=== PATIENT | male | born 1950 | race Two or more races ===

== ENCOUNTER 2019-08-08 23:10 | Inpatient (IN) | payer MEDICAID ==
[~2019-08-08] VITALS: Ht 172.7 cm; Wt 105.2 kg
[2019-08-08 23:35] VITALS: BP 112/68
--- NOTE | 2019-08-08 23:35 | NUR ---
ED Nurse Note: Pt brought into ED from [facility] by [facility] for c/o flu like symptoms. Pt states he has had a cough, congestion, chills and fever the past four days. No fever noted in the ED, temp of 97.4F. Pt is aaox4, no cardiac or respiratory distress noted. Pt is able to ambulate with cane. Pt placed on surveillance system monitor and into hospital gown. Will continue to monitor.
--- NOTE | 2019-08-08 23:45 | NUR ---
ED Nurse Note: Inguinal hernia noted.
--- NOTE | 2019-08-09 | NUR ---
ED Nurse Note: OMERO aware of pt HR jamar in the 50's.
--- NOTE | 2019-08-09 00:24 | Emergency Room Report ---
History of Present Illness General Chief Complaint: Flu Like Symptoms Source: Patient, EMS Present Illness HPI 69-year-old gentleman with a history of chronic kidney disease, diabetes, depression, sleep apnea, scrotal hernia who presents to emergency room with difficulty breathing, and not feeling well for last 2 days. Patient reports symptoms worsened overnight today. Patient did receive influenza vaccination at [email or web address] where he resides. Patient does have a history of congestive heart failure and does feel like he is having increased swelling in his lower extremities as well as difficulty breathing. Patient has been compliant with all of his medications. Patient denies any nausea vomiting diarrhea constipation. Patient has no recent travel. Allergies: Coded Allergies: LISINOPRIL (Verified Allergy, Unknown, 08/08/19) METOPROLOL (Verified Allergy, Unknown, 08/08/19) OXYCODONE (Verified Allergy, Unknown, 08/08/19) RANITIDINE (Verified Allergy, Unknown, 08/08/19) Nursing Documentation-[facility] Hx Diabetes: Yes History Of Psychiatric Problem: Yes - depression Review of Systems Constitutional: Denies: chills, fever Respiratory: Reports: cough, shortness of breath Cardiovascular: Denies: chest pain, palpitations Gastrointestinal: Denies: diarrhea, vomiting Genitourinary: Denies: hematuria, pain Musculoskeletal: Denies: joint swelling Skin: Denies: rash, lesions Neurological: Denies: headache, dizziness Physical Exam Vital Signs Date Time Temp Pulse Resp B/P (MAP) Pulse Ox O2 Delivery O2 Flow Rate FiO2 08/08/19 23:19 97.9 55 23 112/68 (83) 95 Nasal Cannula 3.0 Sp02 EP Interpretation: reviewed General Appearance: well appearing, non-toxic, moderate distress Head: normocephalic, atraumatic Eyes: bilateral eye normal inspection ENT: hearing grossly normal, EOM grossly intact, moist mucus membranes Neck: supple Respiratory: lungs clear, normal breath sounds, no retraction, no accessory muscle use, respiratory distress - moderate, decreased breath sounds, crackles, rhonchi, speaking full sentences Cardiovascular #1: regular rate, rhythm, no edema, no gallop, normal capillary refill Cardiovascular #2: 2+ radial (R), 2+ radial (L) Gastrointestinal: soft, no mass, no organomegaly, non-distended Rectal: deferred Musculoskeletal: moves extm spontaneously, swelling - mild bialteral LE Neurologic: grossly normal Psychiatric: mood/affect normal Skin: warm/dry, normal turgor Medical Decision Making Diagnostic Impression: Primary Impression: CHF (congestive heart failure) Additional Impression: SOB (shortness of breath) ER Course 69-year-old male presents with flulike symptoms, shortness of breath found to have rhonchi bilaterally, mild lower extremity edema, and respiratory distress. Ddx considered but are not limited to URI, pneumonia, PE, bronchitis, viral syndrome, MS ED course We will perform EKG, lab testing and chest x-ray to evaluate, will test for influenza. Patient x-ray noted increased vascular markings. Likely consistent with congestive heart failure exacerbation secondary to viral illness. Patient started on Lasix. Patient also given steroids and duo nebs. Patient will need admission to telemetry Laboratory Tests Test 08/09/19 00:20 08/09/19 01:15 White Blood Count 5.5 K/UL (4.8-10.8) Red Blood Count 3.70 M/UL (4.70-6.10) L Hemoglobin 11.7 G/DL (14.2-18.0) L Hematocrit 36.4 % (42.0-52.0) L Mean Corpuscular Volume 97 FL (80-99) Mean Corpuscular Hemoglobin 31.6 PG (27.0-31.0) H Mean Corpuscular Hemoglobin Concent 32.5 G/DL (32.0-36.0) Red Cell Distribution Width 13.6 % (11.6-14.8) Platelet Count 158 K/UL (150-450) Mean Platelet Volume 6.1 FL (6.5-10.1) L Neutrophils (%) (Auto) % (45.0-75.0) Lymphocytes (%) (Auto) % (20.0-45.0) Monocytes (%) (Auto) % (1.0-10.0) Eosinophils (%) (Auto) % (0.0-3.0) Basophils (%) (Auto) % (0.0-2.0) Sodium Level 140 MMOL/L (136-145) Potassium Level 4.4 MMOL/L (3.5-5.1) Chloride Level 102 MMOL/L (98-107) Carbon Dioxide Level 10 MMOL/L (21-32) L Anion Gap 8 mmol/L (5-15) Blood Urea Nitrogen 44 mg/dL (7-18) H Creatinine 2.3 MG/DL (0.55-1.30) H Estimate Glomerular Filtration Rate 28.3 mL/min (>60) Glucose Level 207 MG/DL (74-106) H Lactic Acid Level 1.20 mmol/L (0.4-2.0) Calcium Level 8.3 MG/DL (8.5-10.1) L Total Bilirubin 0.8 MG/DL (0.2-1.0) Aspartate Amino Transferase (AST) 43 U/L (15-37) H Alanine Aminotransferase (ALT) 34 U/L (12-78) Alkaline Phosphatase 112 U/L (46-116) Total Creatine Kinase 39 U/L (26-140) Creatine Kinase MB 1.0 NG/ML (0.0-3.6) Creatine Kinase MB Relative Index 2.5 Troponin I 0.000 ng/mL (0.000-0.056) Pro-B-Type Natriuretic Peptide Pending Total Protein 8.0 G/DL (6.4-8.2) Albumin 3.5 G/DL (3.4-5.0) Globulin 4.5 g/dL Albumin/Globulin Ratio 0.8 (1.0-2.7) L Urine Color Pale yellow Urine Appearance Clear Urine pH 5 (4.5-8.0) Urine Specific [place] 1.010 (1.005-1.035) Urine Protein Negative (NEGATIVE) Urine Glucose (UA) Negative (NEGATIVE) Urine Ketones Negative (NEGATIVE) Urine Blood Negative (NEGATIVE) Urine Nitrite Negative (NEGATIVE) Urine Bilirubin Negative (NEGATIVE) Urine Urobilinogen Normal MG/DL (0.0-1.0) Urine Leukocyte Esterase Negative (NEGATIVE) Microbiology Date/Time Source Procedure Growth Status 08/09/19 00:20 Nasal Nares - Final Complete 08/09/19 00:20 Nasal Nares - Final Complete Lab Results Impression CBC noted to have mild anemia. CMP noted elevated BUN and creatinine, negative troponin, pending proBNP as it is a send out at this time. And negative urinalysis. EKG Diagnostic Results EKG Time: 00:23 EP Interpretation: Rate of 51 Rate: bradycardiac Rhythm: NSR ST Segments: no acute changes Other Impression Diffuse T wave flattening , poor baseline, prolonged QT of 516, Rhythm Strip Diag. Results Rhythm Strip Time: 06:03 EP Interpretation: yes Rate: 49 Rhythm: NSR Reevaluation Time: 06:04 Last Vital Signs Date Time Temp Pulse Resp B/P (MAP) Pulse Ox O2 Delivery O2 Flow Rate FiO2 08/09/19 03:20 54 18 99 Nasal Cannula 2.0 28 52 18 96 08/09/19 02:30 97.9 114/52 Reevaluation Impression Patient needed to be admitted to telemetry. 6 pages were made out to admitting team with no response starting at 4 AM until 5:58 AM. Yandel Kaur returned call and excepted patient to telemetry unit for further treatment. Disposition: ADMITTED INPATIENT Condition: Serious Dejuan Ferguson M.D. Aug 09, 2019 00:23
[2019-08-09 01:29] LABS: APPEARANCE,URINE CLEAR; BILIRUBIN, URINE NEGATIVE (NEGATIVE); COLOR,URINE PALE YELLOW; GLUCOSE, URINE (UA) NEGATIVE (NEGATIVE); KETONES,URINE NEGATIVE (NEGATIVE); LEUKOCYTE ESTERASE ,URINE NEGATIVE (NEGATIVE); NITRITE,URINE NEGATIVE (NEGATIVE); PH,URINE 5 (4.5-8.0); PROTEIN,URINE NEGATIVE (NEGATIVE); UROBILINOGEN,URINE NORMAL MG/DL (0.0-1.0)
[2019-08-09 01:42] LABS: HEMATOCRIT 36.4 % (42.0-52.0); HEMOGLOBIN 11.7 G/DL (14.2-18.0); MEAN CORPUSCULAR VOLUME 97 FL (80-99); WHITE BLOOD COUNT 5.5 K/UL (4.8-10.8)
[2019-08-09 01:43] LABS: PLATELET COUNT 158 K/UL (150-450); RED CELL DISTRIBUTION WIDTH 13.6 % (11.6-14.8)
[2019-08-09 02:09] LABS: ANION GAP 8 mmol/L (5-15); BLOOD UREA NITROGEN 44 mg/dL (7-18); CARBON DIOXIDE 10 MMOL/L (21-32); CHLORIDE 102 MMOL/L (98-107); CREATININE 2.3 MG/DL (0.55-1.30); POTASSIUM 4.4 MMOL/L (3.5-5.1); SODIUM 140 MMOL/L (136-145)
[2019-08-09 02:10] LABS: ALANINE AMINOTRANSFERASE 34 U/L (12-78); ALBUMIN 3.5 G/DL (3.4-5.0); ASPARTATE AMINO TRANSFERASE 43 U/L (15-37); BILIRUBIN,TOTAL 0.8 MG/DL (0.2-1.0); CALCIUM 8.3 MG/DL (8.5-10.1); CREATINE KINASE 39 U/L (26-140)
[2019-08-09 02:11] LABS: ALBUMIN/GLOBULIN RATIO 0.8 (1.0-2.7); ALKALINE PHOSPHATASE 112 U/L (46-116)
[2019-08-09 02:30] VITALS: BP 114/52
--- NOTE | 2019-08-09 02:30 | NUR ---
ED Nurse Note: Pt is sleeping comfortably in bed at this time, no acute distress noted. Vital signs are stable as charted. Will continue to monitor.
[2019-08-09] MEDS ORDERED: Solu-MEDROL 125mg Inj IVP ONE (03:15)
[2019-08-09] MEDS ORDERED: Albuterol/Ipratropium 3ml neb HHN ONE (03:15)
--- NOTE | 2019-08-09 05:30 | NUR ---
ED Nurse Note: Pt sleeping in bed at this time, no acute distress noted. Awaiting on bed. Will continue to monitor.
[2019-08-09 06:30] VITALS: BP 109/59
--- NOTE | 2019-08-09 07:15 | NUR ---
HAND-OFF: Report given to PAUL Barkley and endorsed care.
--- NOTE | 2019-08-09 07:20 | NUR ---
ED Nurse Note: Received patient in bed, patient resting comfortably in bed, on a imaging technician.
[2019-08-09] MEDS ORDERED: FEROSUL325 M1 PO (07:30)
[2019-08-09] MEDS ORDERED: ACETAZOLAMIDE500 MG ORAL (07:30)
[2019-08-09] MEDS ORDERED: SPIRONOLACTONE100 MG ORAL (07:30)
[2019-08-09] MEDS ORDERED: ATORVASTATIN CA40 MG ORAL (07:30)
[2019-08-09] MEDS ORDERED: MIRTAZAPINE7.5 MG ORAL (07:30)
[2019-08-09] MEDS ORDERED: BUMETANIDE2 MG ORAL (07:30)
[2019-08-09] MEDS ORDERED: PANTOPRAZOLE SO40 MG ORAL (07:30)
[2019-08-09] MEDS ORDERED: LEVOTHYROXINE75 MCG ORAL (07:30)
[2019-08-09] MEDS ORDERED: CARVEDILOL6.25 MG ORAL (07:30)
[2019-08-09] MEDS ORDERED: AMIODARONE HCL400 M1 ORAL (07:30)
[2019-08-09 07:36] VITALS: BP 110/62
--- NOTE | 2019-08-09 08:40 | NUR ---
ED Nurse Note: patient safely transferred to 2W with all of his belongings, endorsed all plan of care to Lynda MILLER.
--- NOTE | 2019-08-09 09:45 | NUR ---
NURSE NOTES: Pt is a new admission from ED,brought to SDU per Zoila,awake alert in no acute resp distress, received by Lynda Mayers RN.Pt denies any c/o chest pain or discomfort,S- jamar on the monitor.
--- NOTE | 2019-08-09 10:06 | History and Physical ---
History of Present Illness General Date patient seen: Aug 10, 2019 Reason for Hospitalization: Flu Like Symptoms Present Illness HPI 69-year-old man with a history of systolic chf, ef 30%, HTN, CAD s/p bypass graft, sever tricuspid regurgitation, chronic kidney disease, diabetes, depression, sleep apnea, scrotal hernia who presented to emergency room with difficulty breathing, and not feeling well for last 2 days. Patient reports symptoms worsened overnight. Patient did receive influenza vaccination at [facility] where he resides. Patient does also feels like he is having increased swelling in his lower extremities as well as difficulty breathing. Patient has been compliant with all of his medications. Patient denies any nausea vomiting diarrhea constipation. Patient has no recent travel. He is usually followed by [facility]. Recently hospitalized there for 4 days and release last week. Says they did a paracentesis on him. past medical history: as above past surgical history: cabg family history: denies any history of sudden cardiac Social history: [facility] resident, denies smoking, etoh or illicit drug use Allergies: Coded Allergies: LISINOPRIL (Verified Allergy, Unknown, 08/08/19) METOPROLOL (Verified Allergy, Unknown, 08/08/19) OXYCODONE (Verified Allergy, Unknown, 08/08/19) RANITIDINE (Verified Allergy, Unknown, 08/08/19) Medication History Scheduled Acetazolamide* (Acetazolamide*), 500 MG ORAL TWICE A DAY, (Reported) Amiodarone Hcl* (Amiodarone Hcl*), 200 MG ORAL EVERY 12 HOURS, (Reported) Atorvastatin Calcium* (Atorvastatin Calcium*), 40 MG ORAL BEDTIME, (Reported) Bumetanide* (Bumetanide*), 4 MG ORAL DAILY, (Reported) Carvedilol* (Carvedilol*), 6.25 MG ORAL EVERY 12 HOURS, (Reported) Levothyroxine Sodium* (Levothyroxine Sodium*), 0.075 MCG ORAL DAILY, (Reported) Mirtazapine* (Mirtazapine*), 30 MG ORAL BEDTIME, (Reported) Pantoprazole* (Pantoprazole*), 40 MG ORAL DAILY, (Reported) Spironolactone* (Spironolactone*), 100 MG ORAL DAILY, (Reported) Miscellaneous Medications Ferrous Sulfate (Ferosul), 325 MG PO, (Reported) Patient History Healthcare decision maker Resuscitation status Advanced Directive on File Review of Systems Constitutional: Denies: no symptoms, see HPI, chills, sweats, fever, malaise, weakness, other Eye: Denies: no symptoms, see HPI, eye pain, blurred vision, tearing, double vision, nose pain, nose congestion, acuity changes, discharge, other Respiratory: Reports: shortness of breath Cardiovascular: Reports: edema Gastrointestinal: Denies: no symptoms, see HPI, abdominal pain, constipation, diarrhea, nausea, vomiting, melena, hematemesis, other Genitourinary: Denies: no symptoms, see HPI, discharge, dysuria, frequency, hematuria, pain, retention, incontinence, urgency, vag bleed/dc, other Musculoskeletal: Denies: no symptoms, see HPI, back pain, gout, joint pain, joint swelling, muscle pain, muscle stiffness, other Skin: Denies: no symptoms, see HPI, rash, change in color, change in hair/nails , dryness, lesions, other Psychiatric: Denies: no symptoms, see HPI, prior hx, anxiety, depressed feelings, emotional problems, SI, HI, hallucinations, other Neurological: Denies: no symptoms, see HPI, headache, numbness, paresthesia, seizure, tingling, tremors, focal weakness, syncope, dizziness, other Hematologic/Lymphatic: Denies: no symptoms, see HPI, anemia, blood clots, easy bleeding, easy bruising, swollen glands, diathesis, other Physical Exam General Appearance: no apparent distress, alert Lines, tubes and drains: peripheral HEENT: normocephalic, atraumatic Neck: non-tender, supple Respiratory/Chest: lungs clear, normal breath sounds, no respiratory distress Cardiovascular/Chest: normal rate, regular rhythm, no gallop/murmur, JVD Abdomen: normal bowel sounds, non tender, soft, distended Extremities: moderate edema, other - chronic skin darkening and changes Skin Exam: warm/dry 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 Last 24 Hour Vital Signs Date Time Temp Pulse Resp B/P (MAP) Pulse Ox O2 Delivery O2 Flow Rate FiO2 08/09/19 08:40 97.9 52 25 110/62 93 Nasal Cannula 2.0 28 08/09/19 07:36 97.9 52 25 110/62 93 Nasal Cannula 2.0 08/09/19 06:30 97.9 50 21 109/59 96 Nasal Cannula 2.0 28 08/09/19 03:20 54 18 99 Nasal Cannula 2.0 28 52 18 96 08/09/19 02:30 97.9 53 19 114/52 95 Nasal Cannula 3.0 08/08/19 23:35 55 23 Nasal Cannula 3.0 08/08/19 23:35 97.9 55 23 112/68 95 Nasal Cannula 3.0 08/08/19 23:19 97.9 55 23 112/68 (83) 95 Nasal Cannula 3.0 Intake and Output 08/08/19 08/09/19 19:00 07:00 Intake Total 0 ml Balance 0 ml Intake Oral 0 ml Laboratory Tests Test 08/09/19 00:20 08/09/19 01:15 White Blood Count 5.5 K/UL (4.8-10.8) Red Blood Count 3.70 M/UL (4.70-6.10) L Hemoglobin 11.7 G/DL (14.2-18.0) L Hematocrit 36.4 % (42.0-52.0) L Mean Corpuscular Volume 97 FL (80-99) Mean Corpuscular Hemoglobin 31.6 PG (27.0-31.0) H Mean Corpuscular Hemoglobin Concent 32.5 G/DL (32.0-36.0) Red Cell Distribution Width 13.6 % (11.6-14.8) Platelet Count 158 K/UL (150-450) Mean Platelet Volume 6.1 FL (6.5-10.1) L Neutrophils (%) (Auto) % (45.0-75.0) Lymphocytes (%) (Auto) % (20.0-45.0) Monocytes (%) (Auto) % (1.0-10.0) Eosinophils (%) (Auto) % (0.0-3.0) Basophils (%) (Auto) % (0.0-2.0) Sodium Level 140 MMOL/L (136-145) Potassium Level 4.4 MMOL/L (3.5-5.1) Chloride Level 102 MMOL/L (98-107) Carbon Dioxide Level 10 MMOL/L (21-32) L Anion Gap 8 mmol/L (5-15) Blood Urea Nitrogen 44 mg/dL (7-18) H Creatinine 2.3 MG/DL (0.55-1.30) H Estimat Glomerular Filtration Rate 28.3 mL/min (>60) Glucose Level 207 MG/DL (74-106) H Lactic Acid Level 1.20 mmol/L (0.4-2.0) Calcium Level 8.3 MG/DL (8.5-10.1) L Total Bilirubin 0.8 MG/DL (0.2-1.0) Aspartate Amino Transf (AST/SGOT) 43 U/L (15-37) H Alanine Aminotransferase (ALT/SGPT) 34 U/L (12-78) Alkaline Phosphatase 112 U/L (46-116) Total Creatine Kinase 39 U/L (26-140) Creatine Kinase MB 1.0 NG/ML (0.0-3.6) Creatine Kinase MB Relative Index 2.5 Troponin I 0.000 ng/mL (0.000-0.056) Pro-B-Type Natriuretic Peptide Pending Total Protein 8.0 G/DL (6.4-8.2) Albumin 3.5 G/DL (3.4-5.0) Globulin 4.5 g/dL Albumin/Globulin Ratio 0.8 (1.0-2.7) L Urine Color Pale yellow Urine Appearance Clear Urine pH 5 (4.5-8.0) Urine Specific [place] 1.010 (1.005-1.035) Urine Protein Negative (NEGATIVE) Urine Glucose (UA) Negative (NEGATIVE) Urine Ketones Negative (NEGATIVE) Urine Blood Negative (NEGATIVE) Urine Nitrite Negative (NEGATIVE) Urine Bilirubin Negative (NEGATIVE) Urine Urobilinogen Normal MG/DL (0.0-1.0) Urine Leukocyte Esterase Negative (NEGATIVE) Microbiology Date/Time Source Procedure Growth Status 08/09/19 00:20 Nasal Nares - Final Complete 08/09/19 00:20 Nasal Nares - Final Complete 08/09/19 07:00 Rectum Received Height (Feet): 5 Height (Inches): 10.00 Weight (Pounds): 230 Assessment/Plan Status: stable Assessment/Plan: 59 year old male with systolic chf, ef 30%, HTN, CAD s/p bypass graft, sever tricuspid regurgitation, chronic kidney disease, diabetes, hypothyroidism, depression, sleep apnea, scrotal hernia presented with sob and edema #Exacerbation of systolic CHF ejection fraction of 30%. #Coronary artery disease with history of coronary artery bypass #HTN #History of severe TR graft. repeat 2D Echocardiogram Cardiology consult Lasix 40 mg IV b.i.d. Coreg hold off on lisinopril and Aldactone in view of renal failure. Hold Bumex as well since on IV lasix continue amiodarone try to get the records from [facility] for further management. #EMMANUELLE vs EMMANUELLE on CKD monitor renal function. Avoid nephrotoxic meds Nephrology consult #COPD #NILSA Hold Diamox for now Duoneb o2 as needed to keep o2 sat >90% ?cpa, resume if already using at home Pulmonary consult #Obesity funeral planning counselor regarding weight loss and life style modification #Severe metabolic acidosis on admission, ? error, resolved I spent 72 minutes on this encounter. >50% spent on counselling and care coordination time of note may not reflect time of encounter Haris Turner M.D. Aug 09, 2019 10:06
--- NOTE | 2019-08-09 10:30 | NUR ---
NURSE NOTES: Dr Singh and Dr Turner at bedside,discussed with pt re plans of care.Pt very alert and knowledgeable re his health problem and surgeries.
--- NOTE | 2019-08-09 13:02 | Diagnostic Imaging Report ---
Indication: Shortness of breath Technique: One view of the chest Comparison: none Findings: The heart is enlarged. There is evidence of prior CABG. The lungs and pleural spaces are clear. Impression: No acute process
--- NOTE | 2019-08-09 14:30 | NUR ---
NURSE NOTES: Pt transferred to Telemetry per bed rm 216 awake alert oriented in no distress accompanied by Lynda Mayers RN and JAMEL Mcgee.
--- NOTE | 2019-08-09 15:00 | NUR ---
NURSE NOTES: recvd pt. Pt is AOX4 on NC @2L with no sign of sob or resp distress. belongings reviewed. court recording monitor showing pt is SR. VSS. IV site is c/d/i. Skin is intact, only dryness on both lower legs. Bed in lowest position, call light within reach, will continue with plan of care
[2019-08-09 16:00] VITALS: BP 119/66
--- NOTE | 2019-08-09 17:59 | NUR ---
NURSE NOTES: Called Dr Monteiro, missing orders for code status, DVT and duo nebs if continue?
[2019-08-09] MEDS: acetaZOLAMIDE 500mg Sequel ORAL SCH (18:11)
--- NOTE | 2019-08-09 19:38 | NUR ---
NURSE NOTES: Received patient from PAUL Hammond. Pt is AOX4 on NC @2L with no sign of sob or resp distress. belongings reviewed. cardiac monitor showing pt is SR. IV site is c/d/i. Skin is intact, only dryness on both lower legs. Bed in lowest position, call light within reach, will continue with plan of care
[2019-08-09 20:00] VITALS: BP 115/65
[2019-08-09] MEDS ORDERED: Amiodarone 200mg tab ORAL SCH (21:00)
[2019-08-09] MEDS ORDERED: Carvedilol 6.25mg Tab ORAL SCH (21:00)
--- NOTE | 2019-08-09 21:29 | Cardiac Electrophysiology PN ---
Subjective Subjective [id number] Objective Last 24 Hour Vital Signs Date Time Temp Pulse Resp B/P (MAP) Pulse Ox O2 Delivery O2 Flow Rate FiO2 08/09/19 20:00 97.7 60 18 115/65 (82) 93 08/09/19 18:26 Nasal Cannula 2.0 08/09/19 16:00 97.5 56 20 119/66 (83) 95 08/09/19 16:00 62 08/09/19 12:00 97.6 58 18 95 08/09/19 11:41 67 08/09/19 10:50 Room Air 08/09/19 09:26 54 08/09/19 08:40 97.9 52 25 110/62 93 Nasal Cannula 2.0 28 08/09/19 08:30 97.5 54 20 95 08/09/19 07:36 97.9 52 25 110/62 93 Nasal Cannula 2.0 08/09/19 06:30 97.9 50 21 109/59 96 Nasal Cannula 2.0 28 08/09/19 03:20 54 18 99 Nasal Cannula 2.0 28 52 18 96 08/09/19 02:30 97.9 53 19 114/52 95 Nasal Cannula 3.0 08/08/19 23:35 55 23 Nasal Cannula 3.0 08/08/19 23:35 97.9 55 23 112/68 95 Nasal Cannula 3.0 08/08/19 23:19 97.9 55 23 112/68 (83) 95 Nasal Cannula 3.0 Intake and Output 08/08/19 08/09/19 19:00 07:00 Intake Total 0 ml Balance 0 ml Intake Oral 0 ml Laboratory Tests Test 08/09/19 00:20 08/09/19 01:15 White Blood Count 5.5 K/UL (4.8-10.8) Red Blood Count 3.70 M/UL (4.70-6.10) L Hemoglobin 11.7 G/DL (14.2-18.0) L Hematocrit 36.4 % (42.0-52.0) L Mean Corpuscular Volume 97 FL (80-99) Mean Corpuscular Hemoglobin 31.6 PG (27.0-31.0) H Mean Corpuscular Hemoglobin Concent 32.5 G/DL (32.0-36.0) Red Cell Distribution Width 13.6 % (11.6-14.8) Platelet Count 158 K/UL (150-450) Mean Platelet Volume 6.1 FL (6.5-10.1) L Neutrophils (%) (Auto) % (45.0-75.0) Lymphocytes (%) (Auto) % (20.0-45.0) Monocytes (%) (Auto) % (1.0-10.0) Eosinophils (%) (Auto) % (0.0-3.0) Basophils (%) (Auto) % (0.0-2.0) Sodium Level 140 MMOL/L (136-145) Potassium Level 4.4 MMOL/L (3.5-5.1) Chloride Level 102 MMOL/L (98-107) Carbon Dioxide Level 10 MMOL/L (21-32) L Anion Gap 8 mmol/L (5-15) Blood Urea Nitrogen 44 mg/dL (7-18) H Creatinine 2.3 MG/DL (0.55-1.30) H Estimat Glomerular Filtration Rate 28.3 mL/min (>60) Glucose Level 207 MG/DL (74-106) H Lactic Acid Level 1.20 mmol/L (0.4-2.0) Calcium Level 8.3 MG/DL (8.5-10.1) L Total Bilirubin 0.8 MG/DL (0.2-1.0) Aspartate Amino Transf (AST/SGOT) 43 U/L (15-37) H Alanine Aminotransferase (ALT/SGPT) 34 U/L (12-78) Alkaline Phosphatase 112 U/L (46-116) Total Creatine Kinase 39 U/L (26-140) Creatine Kinase MB 1.0 NG/ML (0.0-3.6) Creatine Kinase MB Relative Index 2.5 Troponin I 0.000 ng/mL (0.000-0.056) Pro-B-Type Natriuretic Peptide 435 pg/mL (0-125) H Total Protein 8.0 G/DL (6.4-8.2) Albumin 3.5 G/DL (3.4-5.0) Globulin 4.5 g/dL Albumin/Globulin Ratio 0.8 (1.0-2.7) L Urine Color Pale yellow Urine Appearance Clear Urine pH 5 (4.5-8.0) Urine Specific [place] 1.010 (1.005-1.035) Urine Protein Negative (NEGATIVE) Urine Glucose (UA) Negative (NEGATIVE) Urine Ketones Negative (NEGATIVE) Urine Blood Negative (NEGATIVE) Urine Nitrite Negative (NEGATIVE) Urine Bilirubin Negative (NEGATIVE) Urine Urobilinogen Normal MG/DL (0.0-1.0) Urine Leukocyte Esterase Negative (NEGATIVE) Microbiology Date/Time Source Procedure Growth Status 08/09/19 00:20 Nasal Nares - Final Complete 08/09/19 00:20 Nasal Nares - Final Complete 08/09/19 07:00 Rectum Received Paramjit Singh MD Aug 09, 2019 21:29
[2019-08-09] MEDS: Atorvastatin 80mg tab ORAL SCH (21:50)
--- NOTE | 2019-08-09 22:30 | Consultation ---
DATE OF CONSULTATION: 08/09/2019 CARDIOLOGY CONSULTATION CONSULTING PHYSICIAN: Paramjit Singh M.D. REFERRING PHYSICIAN: Antonio Monteiro M.D. REASON FOR CONSULTATION: Management of hypertension and congestive heart failure in a patient with history of coronary artery bypass graft and cardiomyopathy. HISTORY OF PRESENT ILLNESS: The patient is a 69-year-old gentleman with history of hypertension, diabetes, and congestive heart failure with history of coronary artery bypass graft, and severe ischemic cardiomyopathy, ejection fraction of only 30%. The patient also has severe tricuspid regurgitation. He is usually followed by [facility]. The patient came to the emergency room for difficulty breathing and not feeling well, increased leg edema for the last two days. The patient did receive influenza vaccination where he resides. At the time of my evaluation, the patient still short of breath but denies any chest pain. REVIEW OF SYSTEMS: Review of systems was negative other than what was mentioned in the history of present illness. PAST MEDICAL HISTORY: As mentioned above. FAMILY HISTORY: Noncontributory. SOCIAL HISTORY: The patient is a halfway resident. Does not smoke or drink alcohol. PHYSICAL EXAMINATION: VITAL SIGNS: Blood pressure is 112/68, pulse 65, respirations 18, and temperature 97.9. HEAD AND NECK: Mild JVD. LUNGS: Decreased breath sounds. CARDIOVASCULAR: Regular S1 and S2 with no gallop. Sternotomy scar is intact. ABDOMEN: Soft. EXTREMITIES: A 2+ pitting edema. LABORATORY AND DIAGNOSTIC DATA: White count of 5.5, hemoglobin 11.7, hematocrit 36%, platelets 158. Sodium is 140, potassium 4.4, BUN of 45, creatinine 2.3. Lactic acid 1.2. Troponin is negative. ASSESSMENT AND PLAN: 1. Exacerbation of congestive heart failure in a patient with history of cardiomyopathy, ejection fraction of 30%. We will repeat the echocardiogram and start the patient on Lasix 40 mg IV b.i.d. Resume Coreg and hold off on lisinopril and Aldactone in view of renal failure, creatinine 2.3 and risk of hyperkalemia. 2. Coronary artery disease with history of coronary artery bypass graft. 3. History of severe tricuspid regurgitation. Echocardiogram will be repeated. I will try to get the records from [facility] for further management. 4. Renal failure. 5. COPD. 6. Obesity. Thank you very much, Dr. Turner, for allowing me to participate in the care of this patient. Please do not hesitate to contact me for any questions regarding my evaluation. Paramjit Singh M.D. DR: Ember JOB#: [id number] CC:
[2019-08-10] VITALS: BP 116/66
[2019-08-10 04:00] VITALS: BP 120/69
--- NOTE | 2019-08-10 07:29 | NUR ---
HAND-OFF: Report given to Ashley MILLER.
[2019-08-10 07:53] LABS: HEMATOCRIT 36.7 % (42.0-52.0); HEMOGLOBIN 11.9 G/DL (14.2-18.0); MEAN CORPUSCULAR VOLUME 96 FL (80-99); PLATELET COUNT 155 K/UL (150-450); RED BLOOD COUNT 3.81 M/UL (4.70-6.10); RED CELL DISTRIBUTION WIDTH 14.4 % (11.6-14.8); WHITE BLOOD COUNT 9.4 K/UL (4.8-10.8)
[2019-08-10 08:00] VITALS: BP 104/60
--- NOTE | 2019-08-10 08:00 | NUR ---
NURSE NOTES: Received patient from Domo Mayers. Patient is awake, lying comfortably in bed. No complain of pain pr discomfort at this time. Call [place] within patients reach aware to call Rn when he needs to get up in bed. Oxygen via nasal cannula @ 2 L/min. Will follow.
[2019-08-10 08:03] LABS: ANION GAP 7 mmol/L (5-15); BLOOD UREA NITROGEN 51 mg/dL (7-18); CALCIUM 8.5 MG/DL (8.5-10.1); CARBON DIOXIDE 32 MMOL/L (21-32); CHLORIDE 101 MMOL/L (98-107); CREATININE 2.5 MG/DL (0.55-1.30); POTASSIUM 4.7 MMOL/L (3.5-5.1); SODIUM 140 MMOL/L (136-145)
[2019-08-10] MEDS ORDERED: Bumetanide 1mg tab ORAL SCH (09:00)
[2019-08-10] MEDS ORDERED: Spironolactone 50mg tab ORAL SCH (09:00)
[2019-08-10] MEDS: acetaZOLAMIDE 500mg Sequel ORAL SCH (09:38)
[2019-08-10] MEDS ORDERED: Amiodarone 200mg tab ORAL SCH (10:30)
[2019-08-10] MEDS ORDERED: Carvedilol 6.25mg Tab ORAL SCH (10:30)
--- NOTE | 2019-08-10 10:57 | General Progress Note ---
Assessment/Plan Status: stable Assessment/Plan: 59 year old male with systolic chf, ef 30%, HTN, CAD s/p bypass graft, sever tricuspid regurgitation, chronic kidney disease, diabetes, hypothyroidism, depression, sleep apnea, scrotal hernia presented with sob and edema #Exacerbation of systolic CHF ejection fraction of 30%. #Coronary artery disease with history of coronary artery bypass #HTN #History of severe TR graft. repeat 2D Echocardiogram Cardiology consult Lasix 40 mg IV b.i.d. Coreg hold off on lisinopril and Aldactone in view of renal failure. Hold Bumex as well since on IV lasix continue amiodarone try to get the records from [facility] for further management. #EMMANUELLE vs EMMANUELLE on CKD monitor renal function. Avoid nephrotoxic meds Nephrology consult #COPD #NILSA Hold Diamox for now Duoneb o2 as needed to keep o2 sat >90% ?cpa, resume if already using at home Pulmonary consult #Obesity correctional classification counselor regarding weight loss and life style modification #Severe metabolic acidosis on admission, ? error, resolved #Hypothyroidism continue levothyroxine GI ppx: ppi VTE ppx: scd boots, early ambulation I spent 40 minutes on this encounter. >50% spent on counselling and care coordination time of note may not reflect time of encounter Subjective Date patient seen: Aug 10, 2019 ROS Limited/Unobtainable: No Constitutional: Denies: no symptoms, chills, diaphoresis, fever, malaise, weakness, other HEENT: Denies: no symptoms, eye pain, blurred vision, tearing, double vision, ear pain, ear discharge, nose pain, nose congestion, throat pain, throat swelling, mouth pain, mouth swelling, other Cardiovascular: Denies: no symptoms, chest pain, edema, irregular heart rate, lightheadedness, palpitations, syncope, other Respiratory: Reports: shortness of breath Gastrointestinal/Abdominal: Denies: no symptoms, abdomen distended, abdominal pain, black stools, tarry stools, blood in stool, constipated, diarrhea, difficulty swallowing, nausea, poor appetite, poor fluid intake, rectal bleeding , vomiting, other Genitourinary: Denies: no symptoms, burning, discharge, frequency, flank pain, hematuria, incontinence, pain, urgency, other Neurologic/Psychiatric: Denies: no symptoms, anxiety, depressed, emotional problems, headache, numbness, paresthesia, pre-existing deficit, seizure, tingling, tremors, weakness, other Endocrine: Denies: no symptoms, excessive sweating, flushing, intolerance to cold, intolerance to heat, increased hunger, increased thirst, increased urine, unexplained weight gain, unexplained weight loss, other Hematologic/Lymphatic: Denies: no symptoms, anemia, easy bleeding, easy bruising, other Allergies: Coded Allergies: LISINOPRIL (Verified Allergy, Unknown, 08/08/19) METOPROLOL (Verified Allergy, Unknown, 08/08/19) OXYCODONE (Verified Allergy, Unknown, 08/08/19) RANITIDINE (Verified Allergy, Unknown, 08/08/19) Subjective follow up for CHF exacerbation. He has been stable overnight. Echocardiogram about to get done. Still has sob Objective Last 24 Hour Vital Signs Date Time Temp Pulse Resp B/P (MAP) Pulse Ox O2 Delivery O2 Flow Rate FiO2 08/10/19 08:00 97.7 57 20 104/60 (75) 96 08/10/19 04:00 52 08/10/19 04:00 97.3 61 18 120/69 (86) 96 08/10/19 00:00 54 08/10/19 00:00 97.5 62 17 116/66 (83) 94 08/09/19 21:50 67 115/65 08/09/19 21:00 Nasal Cannula 2.0 08/09/19 20:00 60 08/09/19 20:00 97.7 60 18 115/65 (82) 93 08/09/19 18:26 Nasal Cannula 2.0 08/09/19 16:00 97.5 56 20 119/66 (83) 95 08/09/19 16:00 62 08/09/19 12:00 97.6 58 18 95 08/09/19 11:41 67 Intake and Output 08/09/19 08/10/19 18:59 06:59 Intake Total 960 ml Output Total 685 ml 300 ml Balance 275 ml -300 ml Intake Oral 960 ml Output Urine Total 685 ml 300 ml # Voids 1 2 Laboratory Tests 08/10/19 06:40: White Blood Count 9.4#, Red Blood Count 3.81L, Hemoglobin 11.9L, Hematocrit 36.7L, Mean Corpuscular Volume 96, Mean Corpuscular Hemoglobin 31.2H, Mean Corpuscular Hemoglobin Concent 32.4, Red Cell Distribution Width 14.4, Platelet Count 155, Mean Platelet Volume 6.4L, Neutrophils (%) (Auto) , Lymphocytes (%) ( Auto) , Monocytes (%) (Auto) , Eosinophils (%) (Auto) , Basophils (%) (Auto) , Neutrophils % (Manual) [Pending], Lymphocytes % (Manual) [Pending], Platelet Estimate [Pending], Platelet Morphology [Pending], Sodium Level 140, Potassium Level 4.7, Chloride Level 101, Carbon Dioxide Level 32, Anion Gap 7, Blood Urea Nitrogen 51H, Creatinine 2.5H, Estimat Glomerular Filtration Rate 25.7, Glucose Level 200H, Calcium Level 8.5, Troponin I 0.010, Pro-B-Type Natriuretic Peptide [Pending] Height (Feet): 5 Height (Inches): 8.00 Weight (Pounds): 232 Objective General Appearance: no apparent distress, alert Lines, tubes and drains: peripheral HEENT: normocephalic, atraumatic Neck: non-tender, supple Respiratory/Chest: lungs clear, normal breath sounds, no respiratory distress Cardiovascular/Chest: normal rate, regular rhythm, no gallop/murmur, JVD Abdomen: normal bowel sounds, non tender, soft, distended Extremities: moderate edema, other - chronic skin darkening and changes Skin Exam: warm/dry Neurologic: platform architect II-XII grossly normal, no motor/sensory deficits, oriented x 3 , responsive Musculoskeletal: normal muscle bulk Haris Turner M.D. Aug 10, 2019 10:57
[2019-08-10 12:00] VITALS: BP 109/64
--- NOTE | 2019-08-10 12:29 | Cardiac Electrophysiology PN ---
Assessment/Plan Assessment/Plan 1. Exacerbation of congestive heart failure in a patient with history of cardiomyopathy, ejection fraction of 30%. Repeat echocardiogram showed EF 55%. On Lasix 40 mg IV bid, Coreg and hold off on lisinopril and Aldactone in view of renal failure, creatinine 2.3 and risk of hyperkalemia. 2. Coronary artery disease with history of coronary artery bypass graft at [facility]. Ruled out for [place]. 3. History of severe tricuspid regurgitation. Echocardiogram showed only moderate TR. Awaiting records from [facility] 4. Renal failure. Cr 2.5 5. COPD. 6. Obesity. JUDY RN Subjective Subjective Feeling better. No CP. [facility] reports are pending Objective Last 24 Hour Vital Signs Date Time Temp Pulse Resp B/P (MAP) Pulse Ox O2 Delivery O2 Flow Rate FiO2 08/10/19 10:37 57 104/60 08/10/19 09:00 Nasal Cannula 2.0 08/10/19 08:00 97.7 57 20 104/60 (75) 96 08/10/19 08:00 54 08/10/19 04:00 52 08/10/19 04:00 97.3 61 18 120/69 (86) 96 08/10/19 00:00 54 08/10/19 00:00 97.5 62 17 116/66 (83) 94 08/09/19 21:50 67 115/65 08/09/19 21:00 Nasal Cannula 2.0 08/09/19 20:00 60 08/09/19 20:00 97.7 60 18 115/65 (82) 93 08/09/19 18:26 Nasal Cannula 2.0 08/09/19 16:00 97.5 56 20 119/66 (83) 95 08/09/19 16:00 62 Intake and Output 08/09/19 08/10/19 19:00 07:00 Intake Total 960 ml Output Total 685 ml 300 ml Balance 275 ml -300 ml Intake Oral 960 ml Output Urine Total 685 ml 300 ml # Voids 1 2 Laboratory Tests Test 08/10/19 06:40 White Blood Count 9.4 K/UL (4.8-10.8) # Red Blood Count 3.81 M/UL (4.70-6.10) L Hemoglobin 11.9 G/DL (14.2-18.0) L Hematocrit 36.7 % (42.0-52.0) L Mean Corpuscular Volume 96 FL (80-99) Mean Corpuscular Hemoglobin 31.2 PG (27.0-31.0) H Mean Corpuscular Hemoglobin Concent 32.4 G/DL (32.0-36.0) Red Cell Distribution Width 14.4 % (11.6-14.8) Platelet Count 155 K/UL (150-450) Mean Platelet Volume 6.4 FL (6.5-10.1) L Neutrophils (%) (Auto) % (45.0-75.0) Lymphocytes (%) (Auto) % (20.0-45.0) Monocytes (%) (Auto) % (1.0-10.0) Eosinophils (%) (Auto) % (0.0-3.0) Basophils (%) (Auto) % (0.0-2.0) Differential Total Cells Counted 100 Neutrophils % (Manual) 83 % (45-75) H Lymphocytes % (Manual) 10 % (20-45) L Monocytes % (Manual) 6 % (1-10) Eosinophils % (Manual) 0 % (0-3) Basophils % (Manual) 0 % (0-2) Band Neutrophils 1 % (0-8) Platelet Estimate Adequate Platelet Morphology Normal Anisocytosis 1+ Sodium Level 140 MMOL/L (136-145) Potassium Level 4.7 MMOL/L (3.5-5.1) Chloride Level 101 MMOL/L (98-107) Carbon Dioxide Level 32 MMOL/L (21-32) Anion Gap 7 mmol/L (5-15) Blood Urea Nitrogen 51 mg/dL (7-18) H Creatinine 2.5 MG/DL (0.55-1.30) H Estimat Glomerular Filtration Rate 25.7 mL/min (>60) Glucose Level 200 MG/DL (74-106) H Calcium Level 8.5 MG/DL (8.5-10.1) Troponin I 0.010 ng/mL (0.000-0.056) Pro-B-Type Natriuretic Peptide Pending Microbiology Date/Time Source Procedure Growth Status 08/09/19 00:35 Blood Blood Culture - Preliminary NO GROWTH AFTER 24 HOURS Resulted 08/09/19 00:20 Blood Blood Culture - Preliminary NO GROWTH AFTER 24 HOURS Resulted 08/09/19 00:20 Nasal Nares - Final Complete 08/09/19 00:20 Nasal Nares - Final Complete 08/09/19 07:00 Rectum Received Objective HEAD AND NECK: Mild JVD. LUNGS: Decreased breath sounds. CARDIOVASCULAR: Regular S1 and S2 with no gallop. Sternotomy scar is intact. ABDOMEN: Soft. EXTREMITIES: 2+ pitting edema. Paramjit Singh MD Aug 10, 2019 12:29
--- NOTE | 2019-08-10 14:36 | Consultation ---
Consult Note Consult Note asked to eval at the request of Dr Turner 69-year-old gentleman with a history of chronic kidney disease, diabetes, depression, sleep apnea, scrotal hernia who presents to emergency room with difficulty breathing, and not feeling well for last 2 days. Patient reports symptoms worsened overnight today. Patient did receive influenza vaccination at [facility] where he resides. Patient does have a history of congestive heart failure and does feel like he is having increased swelling in his lower extremities as well as difficulty breathing. Patient has been compliant with all of his medications. Patient denies any nausea vomiting diarrhea constipation. Patient has no recent travel. Allergies: LISINOPRIL (Verified Allergy, Unknown, 08/08/19) METOPROLOL (Verified Allergy, Unknown, 08/08/19) OXYCODONE (Verified Allergy, Unknown, 08/08/19) RANITIDINE (Verified Allergy, Unknown, 08/08/19) Hx Diabetes: Yes History Of Psychiatric Problem: Yes - depression interviewed examined data reviewed Assessment/Plan acute on chronic renal failure- CHF s/p CABGS- TR DM HypoThyroidism Optimize cardiac status monitor renal parameters avoid nephrotoxics per orders Jens Begum MD Aug 10, 2019 14:36
--- NOTE | 2019-08-10 15:03 | NUR ---
CASE MANAGEMENT:REVIEW 69 YR OLD MALE BIBA FROM [facility] CC; FEVER AND CHILLS SI: CHF. SOB 97.8 55 23 112/68 95% ON 3L/NC BUN+44 CR+2.3 IS; IV SOLUMEDROL DUONEB HHN IV LASIX BLOOD CX CHEST XRAY : TO TELEMETRY IS: IV LASIX Q12
[2019-08-10 16:00] VITALS: BP 109/64
--- NOTE | 2019-08-10 16:10 | NUR ---
NURSE NOTES: Medical records from [facility] requested by Dr. Singh. Spoke with [facility] of medical records. Request of released signed by patient faxed to [facility] medical records. awaiting response.
[2019-08-10] MEDS: Docusate 100mg cap ORAL SCH (17:10)
--- NOTE | 2019-08-10 17:45 | Diagnostic Imaging Report ---
Indication: Acute renal failure Technique: Grayscale and duplex images of the kidneys, retroperitoneum, and bladder were obtained. Comparison: none Findings: Right kidney measures 11.8 cm in length. Left kidney measures 10.4 cm in length. Both kidneys demonstrate equivocally slightly increased echogenicity. No hydronephrosis. No focal abnormality. Normal inferior vena cava. Bladder is normal. Incidental note is made of abdominal ascites Impression: Equivocally slightly increased renal echogenicity, could indicate medical renal disease if real Negative for hydronephrosis. Ascites incidentally noted
--- NOTE | 2019-08-10 19:26 | NUR ---
HAND-OFF: Report given to Domo Mckeon. Plan of care endorsed.
--- NOTE | 2019-08-10 19:30 | NUR ---
NURSE NOTES: Received patient from PAUL Ramirez. Pt is AOX4 on NC @2L IV site is c/d/i. Skin is intact. Bed in lowest position, call light within reach, will continue with plan of care, instructed pt to call for assistance
[2019-08-10 20:00] VITALS: BP 116/75
[2019-08-10] MEDS: Carvedilol 6.25mg Tab ORAL SCH (21:00)
[2019-08-10] MEDS: Amiodarone 200mg tab ORAL SCH (21:00)
[2019-08-10] MEDS: Atorvastatin 80mg tab ORAL SCH (22:44)
[2019-08-10] MEDS: Albuterol/Ipratropium 3ml neb HHN PRN (23:25)
[2019-08-11] VITALS: BP 116/61
[2019-08-11] MEDS: Albuterol/Ipratropium 3ml neb HHN PRN (03:53)
[2019-08-11 04:00] VITALS: BP 118/63
[2019-08-11 08:00] VITALS: BP 113/68
--- NOTE | 2019-08-11 08:05 | NUR ---
HAND-OFF: Report given to Ashley MILLER.
--- NOTE | 2019-08-11 08:18 | NUR ---
NURSE NOTES: Received patient from Domo Mckeon. Patient sleeping comfortably at this time. NO s/s of distress. Oxygen at 2 L/min via nasal cannula. on cont cardiac monitoring running SR o on the 60's. Fall precautions in place.call [place] within patients reached. Will follow.
--- NOTE | 2019-08-11 08:20 | NUR ---
HAND-OFF: Report given to Ashley, Also endorsed that patient needs to get RT treatments scheduled per RT, rhonchi bilaterally all lobes, some wheezing. will endorse. Was ordering RT prn but pt needs consistent treatments as she sounds much better after treatments
[2019-08-11] MEDS: Carvedilol 6.25mg Tab ORAL SCH ×2 (09:00→21:22)
[2019-08-11] MEDS: Amiodarone 200mg tab ORAL SCH (09:00)
[2019-08-11 09:23] LABS: % IRON SATURATION 9 % (15-50); CREATINE KINASE 19 U/L (26-308); GAMMA GLUTAMYL TRANSPEPTIDASE 65 U/L (5-85); IRON 29 ug/dL (50-175); PHOSPHORUS 4.8 MG/DL (2.5-4.9); TOTAL IRON BINDING CAPACITY 318 ug/dL (250-450)
[2019-08-11 09:30] LABS: ALANINE AMINOTRANSFERASE 51 U/L (12-78); ALBUMIN 3.5 G/DL (3.4-5.0); ALBUMIN/GLOBULIN RATIO 0.8 (1.0-2.7); ALKALINE PHOSPHATASE 105 U/L (46-116); ANION GAP 9 mmol/L (5-15); ASPARTATE AMINO TRANSFERASE 23 U/L (15-37); BILIRUBIN,TOTAL 0.7 MG/DL (0.2-1.0); BLOOD UREA NITROGEN 66 mg/dL (7-18); CALCIUM 8.3 MG/DL (8.5-10.1); CARBON DIOXIDE 31 MMOL/L (21-32); CHLORIDE 100 MMOL/L (98-107); CHOLESTEROL 74 MG/DL (< 200); CREATININE 2.5 MG/DL (0.55-1.30); FERRITIN 95 NG/ML (8-388); HDL CHOLESTEROL 29 MG/DL (40-60); POTASSIUM 4.4 MMOL/L (3.5-5.1); SODIUM 140 MMOL/L (136-145); TRIGLYCERIDES 79 MG/DL (30-150)
[2019-08-11] MEDS: Docusate 100mg cap ORAL SCH ×3 (09:40→17:21)
[2019-08-11 12:00] VITALS: BP 115/70
--- NOTE | 2019-08-11 12:38 | Nephrology Progress Note ---
Assessment/Plan Problem List: (1) Renal failure (ARF), acute on chronic (2) CHF (congestive heart failure) (3) DMII (diabetes mellitus, type 2) (4) Hypothyroidism Assessment acute on chronic renal failure- CHF s/p CABGS- TR DM HypoThyroidism Plan Optimize cardiac status monitor renal parameters avoid nephrotoxics per orders Subjective ROS Limited/Unobtainable: No Constitutional: Reports: malaise Objective Objective Last 24 Hour Vital Signs Date Time Temp Pulse Resp B/P (MAP) Pulse Ox O2 Delivery O2 Flow Rate FiO2 08/11/19 12:00 97.9 60 20 115/70 (85) 94 08/11/19 09:00 54 113/68 08/11/19 09:00 Nasal Cannula 2.0 08/11/19 08:26 93 Nasal Cannula 3.0 32 08/11/19 08:26 60 18 93 Nasal Cannula 3.0 32 08/11/19 08:00 59 08/11/19 08:00 97.7 59 18 113/68 (83) 95 08/11/19 04:00 54 08/11/19 04:00 97.9 55 20 118/63 (81) 94 08/11/19 03:54 58 18 97 Nasal Cannula 3.0 32 56 19 92 08/11/19 00:00 97.5 56 20 116/61 (79) 93 08/11/19 00:00 53 08/10/19 23:31 54 22 96 Nasal Cannula 3.0 32 50 23 92 08/10/19 23:26 74 23 92 Nasal Cannula 2.0 28 08/10/19 21:00 52 109/64 08/10/19 21:00 Nasal Cannula 2.0 08/10/19 20:00 97.6 61 20 116/75 (89) 94 08/10/19 20:00 56 08/10/19 19:00 95 Nasal Cannula 3.0 32 08/10/19 16:00 96.6 53 20 109/64 (79) 96 08/10/19 16:00 53 Intake and Output 08/10/19 08/11/19 19:00 07:00 Intake Total 60 ml Output Total 1200 ml Balance 60 ml -1200 ml Other 60 ml Output Urine Total 1200 ml # Voids 4 Laboratory Tests 08/11/19 07:43: Sodium Level 140, Potassium Level 4.4, Chloride Level 100, Carbon Dioxide Level 31, Anion Gap 9, Blood Urea Nitrogen 66H, Creatinine 2.5H, Estimat Glomerular Filtration Rate 25.7, Glucose Level 192H, Hemoglobin A1c 6.9H, Uric Acid 10.7H, Calcium Level 8.3L, Phosphorus Level 4.8, Magnesium Level 2.5H, Iron Level 29L, Total Iron Binding Capacity 318, Percent Iron Saturation 9L, Unsaturated Iron Binding 289, Ferritin 95, Total Bilirubin 0.7, Gamma Glutamyl Transpeptidase 65 , Aspartate Amino Transf (AST/SGOT) 23, Alanine Aminotransferase (ALT/SGPT) 51, Alkaline Phosphatase 105, Total Creatine Kinase 19L, Troponin I 0.000, C- Reactive Protein, Quantitative 1.8H, Pro-B-Type Natriuretic Peptide 5872H, Total Protein 8.0, Albumin 3.5, Globulin 4.5, Albumin/Globulin Ratio 0.8L, Triglycerides Level 79, Cholesterol Level 74, LDL Cholesterol 35, HDL Cholesterol 29L, Cholesterol/HDL Ratio 2.6L, Vitamin B12 Level 739, Folate 10.5 , Thyroid Stimulating Hormone (TSH) 22.839H Height (Feet): 5 Height (Inches): 8.00 Weight (Pounds): 232 General Appearance: no apparent distress Cardiovascular: bradycardia Respiratory/Chest: decreased breath sounds Abdomen: soft Jens Begum MD Aug 11, 2019 12:38
--- NOTE | 2019-08-11 14:27 | Cardiac Electrophysiology PN ---
Assessment/Plan Assessment/Plan 1. Exacerbation of congestive heart failure in a patient with history of cardiomyopathy, ejection fraction of 30%. Repeat echocardiogram showed EF 55%. On Lasix 40 mg IV bid, Coreg and hold off on lisinopril and Aldactone in view of renal failure, creatinine 2.3 and risk of hyperkalemia. 2. Coronary artery disease with history of coronary artery bypass graft at [facility]. Ruled out for [place]. 3. History of severe tricuspid regurgitation. Echocardiogram showed only moderate TR. 4. Renal failure. Cr 2.5 5. COPD. 6. Obesity. 7. HO Gu Cirrhosis 8. Cardiac Cirrhosis with ascites 9. Atrial flutter s/p DCCV 06/2018. On Amiodarone 100 daily DW RN Subjective Subjective Feeling better. No CP. [facility] reports faxed and reviewed.r Objective Last 24 Hour Vital Signs Date Time Temp Pulse Resp B/P (MAP) Pulse Ox O2 Delivery O2 Flow Rate FiO2 08/11/19 12:00 61 08/11/19 12:00 97.9 60 20 115/70 (85) 94 08/11/19 09:00 54 113/68 08/11/19 09:00 Nasal Cannula 2.0 08/11/19 08:26 93 Nasal Cannula 3.0 32 08/11/19 08:26 60 18 93 Nasal Cannula 3.0 32 08/11/19 08:00 59 08/11/19 08:00 97.7 59 18 113/68 (83) 95 08/11/19 04:00 54 08/11/19 04:00 97.9 55 20 118/63 (81) 94 08/11/19 03:54 58 18 97 Nasal Cannula 3.0 32 56 19 92 08/11/19 00:00 97.5 56 20 116/61 (79) 93 08/11/19 00:00 53 08/10/19 23:31 54 22 96 Nasal Cannula 3.0 32 50 23 92 08/10/19 23:26 74 23 92 Nasal Cannula 2.0 28 08/10/19 21:00 52 109/64 08/10/19 21:00 Nasal Cannula 2.0 08/10/19 20:00 97.6 61 20 116/75 (89) 94 08/10/19 20:00 56 08/10/19 19:00 95 Nasal Cannula 3.0 32 08/10/19 16:00 96.6 53 20 109/64 (79) 96 08/10/19 16:00 53 Intake and Output 08/10/19 08/11/19 19:00 07:00 Intake Total 60 ml Output Total 1200 ml Balance 60 ml -1200 ml Other 60 ml Output Urine Total 1200 ml # Voids 4 Laboratory Tests Test 08/11/19 07:43 Sodium Level 140 MMOL/L (136-145) Potassium Level 4.4 MMOL/L (3.5-5.1) Chloride Level 100 MMOL/L (98-107) Carbon Dioxide Level 31 MMOL/L (21-32) Anion Gap 9 mmol/L (5-15) Blood Urea Nitrogen 66 mg/dL (7-18) H Creatinine 2.5 MG/DL (0.55-1.30) H Estimat Glomerular Filtration Rate 25.7 mL/min (>60) Glucose Level 192 MG/DL (74-106) H Hemoglobin A1c 6.9 % (4.3-6.0) H Uric Acid 10.7 MG/DL (2.6-7.2) H Calcium Level 8.3 MG/DL (8.5-10.1) L Phosphorus Level 4.8 MG/DL (2.5-4.9) Magnesium Level 2.5 MG/DL (1.8-2.4) H Iron Level 29 ug/dL (50-175) L Total Iron Binding Capacity 318 ug/dL (250-450) Percent Iron Saturation 9 % (15-50) L Unsaturated Iron Binding 289 ug/dL (112-346) Ferritin 95 NG/ML (8-388) Total Bilirubin 0.7 MG/DL (0.2-1.0) Gamma Glutamyl Transpeptidase 65 U/L (5-85) Aspartate Amino Transf (AST/SGOT) 23 U/L (15-37) Alanine Aminotransferase (ALT/SGPT) 51 U/L (12-78) Alkaline Phosphatase 105 U/L (46-116) Total Creatine Kinase 19 U/L (26-308) L Troponin I 0.000 ng/mL (0.000-0.056) C-Reactive Protein, Quantitative 1.8 mg/dL (0.00-0.90) H Pro-B-Type Natriuretic Peptide 5872 pg/mL (0-125) H Total Protein 8.0 G/DL (6.4-8.2) Albumin 3.5 G/DL (3.4-5.0) Globulin 4.5 g/dL Albumin/Globulin Ratio 0.8 (1.0-2.7) L Triglycerides Level 79 MG/DL (30-150) Cholesterol Level 74 MG/DL (< 200) LDL Cholesterol 35 mg/dL (<100) HDL Cholesterol 29 MG/DL (40-60) L Cholesterol/HDL Ratio 2.6 (3.3-4.4) L Vitamin B12 Level 739 PG/ML (193-986) Folate 10.5 NG/ML (8.6-58.9) Thyroid Stimulating Hormone (TSH) 22.839 uiU/mL (0.358-3.740) Microbiology Date/Time Source Procedure Growth Status 08/09/19 00:35 Blood Blood Culture - Preliminary NO GROWTH AFTER 48 HOURS Resulted 08/09/19 00:20 Blood Blood Culture - Preliminary NO GROWTH AFTER 48 HOURS Resulted 08/09/19 07:00 Nasal Nares MRSA Culture - Final NO METHICILLIN RESISTANT STAPH AUREUS... Complete 08/09/19 00:20 Nasal Nares - Final Complete 08/09/19 00:20 Nasal Nares - Final Complete 08/09/19 07:00 Rectum - Final NO CARBAPENEM-RESISTANT ENTEROBACTERI... Complete 08/09/19 07:00 Rectum VRE Culture - Final NO VANCOMYCIN RESISTANT ENTEROCOCCUS ... Complete Objective HEAD AND NECK: Mild JVD. LUNGS: Decreased breath sounds. CARDIOVASCULAR: Regular S1 and S2 with no gallop. Sternotomy scar is intact. ABDOMEN: Soft. EXTREMITIES: 2+ pitting edema. Paramjit Sinhg MD Aug 11, 2019 14:27
[2019-08-11 16:00] VITALS: BP 119/60
--- NOTE | 2019-08-11 19:15 | NUR ---
NURSE NOTES: Received report from PAUL Ramirez. Patient is awake, lying in semi goodman's; resting comfortably. A/Ox4. Denies pain at this time. No signs of acute distress noted. On oxygen via NC @ 2LPM. Checked IV site and flushed. No erythema, bleeding or infiltration noted. Bed at lowest position, brakes on, [id number]. Call light within reach. Will continue to monitor.
--- NOTE | 2019-08-11 19:42 | NUR ---
HAND-OFF: Report given to Domo Barbosa Plan of care endorsed..
[2019-08-11 20:00] VITALS: BP 120/65
--- NOTE | 2019-08-11 20:29 | General Progress Note ---
Assessment/Plan Status: stable Assessment/Plan: 59 year old male with systolic chf, ef 30%, HTN, CAD s/p bypass graft, sever tricuspid regurgitation, chronic kidney disease, diabetes, hypothyroidism, depression, sleep apnea, scrotal hernia presented with sob and edema #Exacerbation of systolic CHF ejection fraction of 30%. #Coronary artery disease with history of coronary artery bypass #HTN #History of severe TR graft. repeat 2D Echocardiogram Cardiology consult Lasix 40 mg IV b.i.d. Coreg hold off on lisinopril and Aldactone in view of renal failure. Hold Bumex as well since on IV lasix continue amiodarone try to get the records from [facility] for further management. #EMMANUELLE vs EMMANUELLE on CKD monitor renal function. Avoid nephrotoxic meds Nephrology consult #COPD #NILSA Hold Diamox for now Duoneb o2 as needed to keep o2 sat >90% ?cpa, resume if already using at home Pulmonary consult #Obesity nurses' association counselor regarding weight loss and life style modification #Severe metabolic acidosis on admission, ? error, resolved #Hypothyroidism continue levothyroxine Elevated TSH at 22, endocrinology consult GI ppx: ppi VTE ppx: scd boots, early ambulation I spent 40 minutes on this encounter. >50% spent on counselling and care coordination time of note may not reflect time of encounter Subjective Date patient seen: Aug 11, 2019 Allergies: Coded Allergies: LISINOPRIL (Verified Allergy, Unknown, 08/08/19) METOPROLOL (Verified Allergy, Unknown, 08/08/19) OXYCODONE (Verified Allergy, Unknown, 08/08/19) RANITIDINE (Verified Allergy, Unknown, 08/08/19) Subjective Admits to lower extremity edema, no chest pain or shortness of breath Objective Last 24 Hour Vital Signs Date Time Temp Pulse Resp B/P (MAP) Pulse Ox O2 Delivery O2 Flow Rate FiO2 08/11/19 16:00 96.7 63 18 119/60 (79) 94 08/11/19 16:00 61 08/11/19 12:00 61 08/11/19 12:00 97.9 60 20 115/70 (85) 94 08/11/19 09:00 54 113/68 08/11/19 09:00 Nasal Cannula 2.0 08/11/19 08:26 93 Nasal Cannula 3.0 32 08/11/19 08:26 60 18 93 Nasal Cannula 3.0 32 08/11/19 08:00 59 08/11/19 08:00 97.7 59 18 113/68 (83) 95 08/11/19 04:00 54 08/11/19 04:00 97.9 55 20 118/63 (81) 94 08/11/19 03:54 58 18 97 Nasal Cannula 3.0 32 56 19 92 08/11/19 00:00 97.5 56 20 116/61 (79) 93 08/11/19 00:00 53 08/10/19 23:31 54 22 96 Nasal Cannula 3.0 32 50 23 92 08/10/19 23:26 74 23 92 Nasal Cannula 2.0 28 08/10/19 21:00 52 109/64 08/10/19 21:00 Nasal Cannula 2.0 Intake and Output 08/10/19 08/11/19 19:00 07:00 Intake Total 60 ml Output Total 1200 ml Balance 60 ml -1200 ml Other 60 ml Output Urine Total 1200 ml # Voids 4 Laboratory Tests 08/11/19 07:43: Sodium Level 140, Potassium Level 4.4, Chloride Level 100, Carbon Dioxide Level 31, Anion Gap 9, Blood Urea Nitrogen 66H, Creatinine 2.5H, Estimat Glomerular Filtration Rate 25.7, Glucose Level 192H, Hemoglobin A1c 6.9H, Uric Acid 10.7H, Calcium Level 8.3L, Phosphorus Level 4.8, Magnesium Level 2.5H, Iron Level 29L, Total Iron Binding Capacity 318, Percent Iron Saturation 9L, Unsaturated Iron Binding 289, Ferritin 95, Total Bilirubin 0.7, Gamma Glutamyl Transpeptidase 65 , Aspartate Amino Transf (AST/SGOT) 23, Alanine Aminotransferase (ALT/SGPT) 51, Alkaline Phosphatase 105, Total Creatine Kinase 19L, Troponin I 0.000, C- Reactive Protein, Quantitative 1.8H, Pro-B-Type Natriuretic Peptide 5872H, Total Protein 8.0, Albumin 3.5, Globulin 4.5, Albumin/Globulin Ratio 0.8L, Triglycerides Level 79, Cholesterol Level 74, LDL Cholesterol 35, HDL Cholesterol 29L, Cholesterol/HDL Ratio 2.6L, Vitamin B12 Level 739, Folate 10.5 , Thyroid Stimulating Hormone (TSH) 22.839H Height (Feet): 5 Height (Inches): 8.00 Weight (Pounds): 232 Objective Exam GENERAL: No acute distress, appears comfortable, alert HEENT: NCAT, non-icteric eyes, pupils PERRLA Neck: No cervical lymphadenopathy, trachea midline CV: Regular rate and rhythm, no murmurs rubs or gallops RESP: Clear to auscultation bilaterally, no wheezes/rhonchi/crackles ABD: soft, non-distended, no TTP EXT: Normal muscle tone, +5/5 muscle strength NEURO: No obvious deficits, alert and oriented x3 Ananya Bhatt DO Aug 11, 2019 20:29
[2019-08-11] MEDS: Atorvastatin 80mg tab ORAL SCH (21:22)
[2019-08-12] VITALS: BP 122/72
[2019-08-12] MEDS: Albuterol/Ipratropium 3ml neb HHN PRN ×2 (01:00→20:50)
--- NOTE | 2019-08-12 03:36 | NUR ---
NURSE NOTES: Resting throughout the night. No significant change of condition noted. Will continue to monitor.
[2019-08-12 04:00] VITALS: BP 106/48
[2019-08-12] MEDS: Levothyroxine 125mcg tab ORAL SCH (05:54)
--- NOTE | 2019-08-12 07:02 | NUR ---
HAND-OFF: Report given to PAUL Ramirez. Plan of care endorsed.
--- NOTE | 2019-08-12 07:45 | NUR ---
NURSE NOTES: received patient from Domo Barbosa. Patient is awake in bed. Denies pain or discomfort. Safety/fall precautions in place. Call [place] within patients reach. will follow.
[2019-08-12 08:00] VITALS: BP 115/63
[2019-08-12] MEDS: Docusate 100mg cap ORAL SCH ×3 (08:28→17:10)
[2019-08-12] MEDS: Amiodarone 200mg tab ORAL SCH (08:28)
[2019-08-12] MEDS: Carvedilol 6.25mg Tab ORAL SCH ×3 (08:29→20:31)
[2019-08-12 08:38] LABS: BASOPHILS % (AUTO) 1.4 % (0.0-2.0); EOSINOPHILS % (AUTO) 0.7 % (0.0-3.0); HEMATOCRIT 35.6 % (42.0-52.0); HEMOGLOBIN 11.4 G/DL (14.2-18.0); LYMPHOCYTES % (AUTO) 11.1 % (20.0-45.0); MEAN CORPUSCULAR VOLUME 97 FL (80-99); MONOCYTES % (AUTO) 9.5 % (1.0-10.0); NEUTROPHILS % (AUTO) 77.3 % (45.0-75.0); PLATELET COUNT 150 K/UL (150-450); RED BLOOD COUNT 3.67 M/UL (4.70-6.10); RED CELL DISTRIBUTION WIDTH 13.3 % (11.6-14.8); WHITE BLOOD COUNT 6.4 K/UL (4.8-10.8)
[2019-08-12 09:08] LABS: ALANINE AMINOTRANSFERASE 37 U/L (12-78); ALBUMIN 3.4 G/DL (3.4-5.0); ALBUMIN/GLOBULIN RATIO 0.8 (1.0-2.7); ALKALINE PHOSPHATASE 83 U/L (46-116); ANION GAP 9 mmol/L (5-15); ASPARTATE AMINO TRANSFERASE 13 U/L (15-37); BILIRUBIN,TOTAL 0.7 MG/DL (0.2-1.0); BLOOD UREA NITROGEN 68 mg/dL (7-18); CALCIUM 8.4 MG/DL (8.5-10.1); CARBON DIOXIDE 32 MMOL/L (21-32); CHLORIDE 100 MMOL/L (98-107); CREATININE 2.2 MG/DL (0.55-1.30); PHOSPHORUS 4.1 MG/DL (2.5-4.9); POTASSIUM 4.4 MMOL/L (3.5-5.1); SODIUM 141 MMOL/L (136-145)
[2019-08-12 12:00] VITALS: BP 129/69
[2019-08-12 15:41] VITALS: BP 102/64
--- NOTE | 2019-08-12 16:10 | Nephrology Progress Note ---
Assessment/Plan Problem List: (1) Renal failure (ARF), acute on chronic (2) CHF (congestive heart failure) (3) DMII (diabetes mellitus, type 2) (4) Hypothyroidism Assessment acute on chronic renal failure- CHF s/p CABGS- TR DM HypoThyroidism Plan Optimize cardiac status monitor renal parameters avoid nephrotoxics per orders Subjective ROS Limited/Unobtainable: No Constitutional: Reports: malaise, weakness Objective Objective Last 24 Hour Vital Signs Date Time Temp Pulse Resp B/P (MAP) Pulse Ox O2 Delivery O2 Flow Rate FiO2 08/12/19 15:41 97.3 53 18 102/64 (77) 95 08/12/19 12:00 97.2 55 18 129/69 (89) 92 08/12/19 12:00 52 08/12/19 09:00 Nasal Cannula 2.0 08/12/19 08:36 92 Nasal Cannula 2.0 28 08/12/19 08:35 55 20 92 Nasal Cannula 2.0 28 08/12/19 08:29 60 115/63 08/12/19 08:00 59 08/12/19 08:00 97.9 60 18 115/63 (80) 92 08/12/19 04:00 51 08/12/19 04:00 98.2 53 19 106/48 (67) 95 08/12/19 01:01 60 20 98 Nasal Cannula 2.0 28 57 20 97 08/12/19 00:00 55 08/12/19 00:00 97.7 57 19 122/72 (89) 95 08/11/19 21:22 64 120/65 08/11/19 21:00 Nasal Cannula 2.0 08/11/19 20:00 66 18 93 Nasal Cannula 2.0 28 08/11/19 20:00 98.0 64 19 120/65 (83) 96 08/11/19 20:00 57 08/11/19 20:00 93 Nasal Cannula 2.0 28 Intake and Output 08/11/19 08/12/19 19:00 07:00 Intake Total 720 ml 240 ml Output Total 1000 ml 1200 ml Balance -280 ml -960 ml Intake Oral 720 ml 240 ml Output Urine Total 1000 ml 1200 ml Laboratory Tests 08/12/19 07:25: White Blood Count 6.4, Red Blood Count 3.67L, Hemoglobin 11.4L, Hematocrit 35.6L , Mean Corpuscular Volume 97, Mean Corpuscular Hemoglobin 31.1H, Mean Corpuscular Hemoglobin Concent 32.1, Red Cell Distribution Width 13.3, Platelet Count 150, Mean Platelet Volume 6.1L, Neutrophils (%) (Auto) 77.3H, Lymphocytes (%) (Auto) 11.1L, Monocytes (%) (Auto) 9.5, Eosinophils (%) (Auto) 0.7, Basophils (%) (Auto) 1.4, Sodium Level 141, Potassium Level 4.4, Chloride Level 100, Carbon Dioxide Level 32, Anion Gap 9, Blood Urea Nitrogen 68H, Creatinine 2.2H, Estimat Glomerular Filtration Rate 29.8, Glucose Level 156H, Uric Acid 11.0H, Calcium Level 8.4L, Phosphorus Level 4.1, Magnesium Level 2.5H, Total Bilirubin 0.7, Aspartate Amino Transf (AST/SGOT) 13L, Alanine Aminotransferase ( ALT/SGPT) 37, Alkaline Phosphatase 83, C-Reactive Protein, Quantitative 2.1H, Pro-B-Type Natriuretic Peptide 4607H, Total Protein 7.7, Albumin 3.4, Globulin 4.3, Albumin/Globulin Ratio 0.8L, Free Thyroxine 1.12, Free Triiodothyronine 1.8L Height (Feet): 5 Height (Inches): 8.00 Weight (Pounds): 232 General Appearance: no apparent distress Cardiovascular: bradycardia Respiratory/Chest: decreased breath sounds Abdomen: soft Jens Begum MD Aug 12, 2019 16:10
--- NOTE | 2019-08-12 16:52 | Cardiac Electrophysiology PN ---
Assessment/Plan Assessment/Plan 1. Exacerbation of CHF in a patient with history of cardiomyopathy, ejection fraction of 30%. Repeat echocardiogram showed EF 55%. Decrease Lasix to 40 mg IV daily, Coreg . Off on lisinopril and Aldactone in view of renal failure, creatinine 2.3 and risk of hyperkalemia. 2. Coronary artery disease with history of coronary artery bypass graft at [facility]. Ruled out for [place]. 3. History of severe tricuspid regurgitation. Echocardiogram showed only moderate TR. 4. Renal failure. Cr 2.5 5. COPD. 6. Obesity. 7. HO Gu Cirrhosis 8. Cardiac Cirrhosis with ascites 9. Atrial flutter s/p DCCV 06/2018. On Amiodarone 100 daily DW RN Subjective Subjective No CP. [facility] reports reviewed. Objective Last 24 Hour Vital Signs Date Time Temp Pulse Resp B/P (MAP) Pulse Ox O2 Delivery O2 Flow Rate FiO2 08/12/19 15:41 97.3 53 18 102/64 (77) 95 08/12/19 12:00 97.2 55 18 129/69 (89) 92 08/12/19 12:00 52 08/12/19 09:00 Nasal Cannula 2.0 08/12/19 08:36 92 Nasal Cannula 2.0 28 08/12/19 08:35 55 20 92 Nasal Cannula 2.0 28 08/12/19 08:29 60 115/63 08/12/19 08:00 59 08/12/19 08:00 97.9 60 18 115/63 (80) 92 08/12/19 04:00 51 08/12/19 04:00 98.2 53 19 106/48 (67) 95 08/12/19 01:01 60 20 98 Nasal Cannula 2.0 28 57 20 97 08/12/19 00:00 55 08/12/19 00:00 97.7 57 19 122/72 (89) 95 08/11/19 21:22 64 120/65 08/11/19 21:00 Nasal Cannula 2.0 08/11/19 20:00 66 18 93 Nasal Cannula 2.0 28 08/11/19 20:00 98.0 64 19 120/65 (83) 96 08/11/19 20:00 57 08/11/19 20:00 93 Nasal Cannula 2.0 28 Intake and Output 08/11/19 08/12/19 19:00 07:00 Intake Total 720 ml 240 ml Output Total 1000 ml 1200 ml Balance -280 ml -960 ml Intake Oral 720 ml 240 ml Output Urine Total 1000 ml 1200 ml Laboratory Tests Test 08/12/19 07:25 White Blood Count 6.4 K/UL (4.8-10.8) Red Blood Count 3.67 M/UL (4.70-6.10) L Hemoglobin 11.4 G/DL (14.2-18.0) L Hematocrit 35.6 % (42.0-52.0) L Mean Corpuscular Volume 97 FL (80-99) Mean Corpuscular Hemoglobin 31.1 PG (27.0-31.0) H Mean Corpuscular Hemoglobin Concent 32.1 G/DL (32.0-36.0) Red Cell Distribution Width 13.3 % (11.6-14.8) Platelet Count 150 K/UL (150-450) Mean Platelet Volume 6.1 FL (6.5-10.1) L Neutrophils (%) (Auto) 77.3 % (45.0-75.0) H Lymphocytes (%) (Auto) 11.1 % (20.0-45.0) L Monocytes (%) (Auto) 9.5 % (1.0-10.0) Eosinophils (%) (Auto) 0.7 % (0.0-3.0) Basophils (%) (Auto) 1.4 % (0.0-2.0) Sodium Level 141 MMOL/L (136-145) Potassium Level 4.4 MMOL/L (3.5-5.1) Chloride Level 100 MMOL/L (98-107) Carbon Dioxide Level 32 MMOL/L (21-32) Anion Gap 9 mmol/L (5-15) Blood Urea Nitrogen 68 mg/dL (7-18) H Creatinine 2.2 MG/DL (0.55-1.30) H Estimat Glomerular Filtration Rate 29.8 mL/min (>60) Glucose Level 156 MG/DL (74-106) H Uric Acid 11.0 MG/DL (2.6-7.2) H Calcium Level 8.4 MG/DL (8.5-10.1) L Phosphorus Level 4.1 MG/DL (2.5-4.9) Magnesium Level 2.5 MG/DL (1.8-2.4) H Total Bilirubin 0.7 MG/DL (0.2-1.0) Aspartate Amino Transf (AST/SGOT) 13 U/L (15-37) L Alanine Aminotransferase (ALT/SGPT) 37 U/L (12-78) Alkaline Phosphatase 83 U/L (46-116) C-Reactive Protein, Quantitative 2.1 mg/dL (0.00-0.90) H Pro-B-Type Natriuretic Peptide 4607 pg/mL (0-125) H Total Protein 7.7 G/DL (6.4-8.2) Albumin 3.4 G/DL (3.4-5.0) Globulin 4.3 g/dL Albumin/Globulin Ratio 0.8 (1.0-2.7) L Free Thyroxine 1.12 NG/DL (0.76-1.46) Free Triiodothyronine 1.8 pg/mL (2.3-4.2) L Objective HEAD AND NECK: Mild JVD. LUNGS: Decreased breath sounds. CARDIOVASCULAR: Regular S1 and S2 with no gallop. Sternotomy scar is intact. ABDOMEN: Soft. EXTREMITIES: 2+ pitting edema. Paramjit Singh MD Aug 12, 2019 16:52
[2019-08-12] MEDS ORDERED: Tamsulosin 0.4mg cap ORAL SCH (18:00)
--- NOTE | 2019-08-12 19:00 | NUR ---
NURSE NOTES: Received report from PAUL Ramirez. Patient is awake, lying in semi goodman's; resting comfortably. A/Ox4. Primarily Slovak speaking. Denies pain at this time. No signs of acute distress noted. Checked IV site and flushed. No erythema, bleeding or infiltration noted. Bed at lowest position, brakes on, [id number]. Call light within reach. Will continue to monitor.
--- NOTE | 2019-08-12 19:03 | NUR ---
HAND-OFF: Report given to Domo Brabosa. Plan of care endorsed.
[2019-08-12 20:00] VITALS: BP 126/74
--- NOTE | 2019-08-12 20:12 | Consultation ---
Consult Note Assessment/Plan Dictated decompensated CHf suspected viral syncrome Dm HTn hypothryoidism CAD hx of cabg depression Lety Holden DO Aug 12, 2019 20:12
[2019-08-12] MEDS: Tamsulosin 0.4mg cap ORAL SCH (20:25)
[2019-08-12] MEDS: Atorvastatin 80mg tab ORAL SCH (20:26)
[2019-08-12] MEDS: NovoLOG Insulin Flexpen SUBQ SCH (21:16)
--- NOTE | 2019-08-12 22:15 | Consultation ---
DATE OF CONSULTATION: 08/12/2019 PULMONARY CONSULTATION CONSULTING PHYSICIAN: Lety Holden M.D. REFERRING PHYSICIAN: Antonio Monteiro M.D. REASON FOR CONSULTATION: Shortness of breath. HISTORY OF PRESENT ILLNESS: This is an elderly gentleman who was admitted with flu-like symptoms to the emergency room, cough, shortness of breath, and fever. No reports of nausea, vomiting, or diarrhea. He did receive the influenza vaccine at his facility. He denies any hemoptysis. PAST MEDICAL HISTORY: Includes diabetes, renal insufficiency, obstructive sleep apnea, decompensated heart failure, coronary artery disease, status post CABG. His EF was last reported at 30%, severe tricuspid regurgitation and hypothyroidism. PAST SURGICAL HISTORY: Positive for CABG. MEDICATIONS: Pre-hospital and current medications have been reviewed, reconciled, and documented in the electronic record by dose, frequency, and route. ALLERGIES: His allergies have been documented with lisinopril, metoprolol, oxycodone, ranitidine. FAMILY HISTORY: Noncontributory. PHYSICAL EXAMINATION: GENERAL: At the time of my exam, he is alert. He does have a cough, but he has no acute respiratory distress. He is afebrile. VITAL SIGNS: Pulse is 54, respirations are 20, blood pressure is 123/70, he is on 2 liters nasal cannula, saturating 94%. HEENT: Normocephalic, atraumatic. Oropharynx is dry. Nasal mucosa dry. NECK: Supple without lymphadenopathy. LUNGS: Decreased with bilateral rhonchi. No wheezes are present. HEART: Regular with an audible murmur. ABDOMEN: Soft, nontender, obese. Positive bowel sounds. EXTREMITIES: Positive edema in the lower extremities spontaneously and is ambulating to the bathroom. LABORATORY DATA: White count is 6.4, hemoglobin 11.4, and platelets are 150,000. His sodium is 141, potassium 4.4, chloride 100, bicarb 32, BUN 68, creatinine 2.2, glucose 156. Uric acid is 11. BNP is elevated at 4607. His urinalysis is negative for leukocyte esterase. IMAGING STUDIES: Include a chest x-ray, which was performed on 08/09/2019, which apparently at that time showed no acute process and no cultures have been revealed any organisms. ASSESSMENT AND PLAN: Respiratory distress, viral syndrome, decompensated heart failure, history of CABG with tricuspid regurgitation, diabetes, hypothyroidism, hypertension, sleep apnea. Plan for the patient, diuresis. His blood pressure and renal function tolerate. A 2D echo is pending at this time. DVT prophylaxis, nebulizers, supportive care. Nebulizer treatments, O2 to maintain sats greater than . Aspiration precautions. Follow up with chest x-ray in the morning and follow up his cultures. He is currently not on bacterial anti-infectives, which is appropriate unless his cultures do materialize something to treat. We will continue to follow the patient. Lety Holden D.O. DR: CHAIM JOB#: [id number] CC:
--- NOTE | 2019-08-12 22:32 | General Progress Note ---
Assessment/Plan Status: stable Assessment/Plan: 59 year old male with systolic chf, ef 30%, HTN, CAD s/p bypass graft, sever tricuspid regurgitation, chronic kidney disease, diabetes, hypothyroidism, depression, sleep apnea, scrotal hernia presented with sob and edema #Exacerbation of systolic CHF ejection fraction of 30%. #Coronary artery disease with history of coronary artery bypass #HTN #History of severe TR graft. repeat 2D Echocardiogram Cardiology consult Lasix 40 mg IV b.i.d. Coreg hold off on lisinopril and Aldactone in view of renal failure. Hold Bumex as well since on IV lasix continue amiodarone try to get the [facility] from [facility] for further management. #EMMANUELLE vs EMMANUELLE on CKD monitor renal function. Avoid nephrotoxic meds Nephrology consult #COPD #NILSA Hold Diamox for now Duoneb o2 as needed to keep o2 sat >90% ?cpa, resume if already using at home Pulmonary consult #Obesity family court counsellor regarding weight loss and life style modification #Severe metabolic acidosis on admission, ? error, resolved #Hypothyroidism continue levothyroxine Elevated TSH at 22, endocrinology consult GI ppx: ppi VTE ppx: scd boots, early ambulation I spent 40 minutes on this encounter. >50% spent on counselling and care coordination time of note may not reflect time of encounter Subjective Date patient seen: Aug 12, 2019 Allergies: Coded Allergies: LISINOPRIL (Verified Allergy, Unknown, 08/08/19) METOPROLOL (Verified Allergy, Unknown, 08/08/19) OXYCODONE (Verified Allergy, Unknown, 08/08/19) RANITIDINE (Verified Allergy, Unknown, 08/08/19) Subjective c/o persistent cough, denies cp, le edema Objective Last 24 Hour Vital Signs Date Time Temp Pulse Resp B/P (MAP) Pulse Ox O2 Delivery O2 Flow Rate FiO2 08/12/19 21:00 Nasal Cannula 2.0 08/12/19 20:50 59 20 98 Nasal Cannula 2.0 28 56 20 96 08/12/19 20:31 54 124/73 08/12/19 20:00 97.2 54 20 126/74 (91) 96 08/12/19 20:00 51 08/12/19 19:43 94 Nasal Cannula 2.0 28 08/12/19 19:43 60 20 94 Nasal Cannula 2.0 28 08/12/19 16:00 52 08/12/19 15:41 97.3 53 18 102/64 (77) 95 08/12/19 12:00 97.2 55 18 129/69 (89) 92 08/12/19 12:00 52 08/12/19 09:00 Nasal Cannula 2.0 08/12/19 08:36 92 Nasal Cannula 2.0 28 08/12/19 08:35 55 20 92 Nasal Cannula 2.0 28 08/12/19 08:29 60 115/63 08/12/19 08:00 59 08/12/19 08:00 97.9 60 18 115/63 (80) 92 08/12/19 04:00 51 08/12/19 04:00 98.2 53 19 106/48 (67) 95 08/12/19 01:01 60 20 98 Nasal Cannula 2.0 28 57 20 97 08/12/19 00:00 55 08/12/19 00:00 97.7 57 19 122/72 (89) 95 Intake and Output 08/11/19 08/12/19 19:00 07:00 Intake Total 720 ml 240 ml Output Total 1000 ml 1200 ml Balance -280 ml -960 ml Intake Oral 720 ml 240 ml Output Urine Total 1000 ml 1200 ml Laboratory Tests 08/12/19 07:25: White Blood Count 6.4, Red Blood Count 3.67L, Hemoglobin 11.4L, Hematocrit 35.6L , Mean Corpuscular Volume 97, Mean Corpuscular Hemoglobin 31.1H, Mean Corpuscular Hemoglobin Concent 32.1, Red Cell Distribution Width 13.3, Platelet Count 150, Mean Platelet Volume 6.1L, Neutrophils (%) (Auto) 77.3H, Lymphocytes (%) (Auto) 11.1L, Monocytes (%) (Auto) 9.5, Eosinophils (%) (Auto) 0.7, Basophils (%) (Auto) 1.4, Sodium Level 141, Potassium Level 4.4, Chloride Level 100, Carbon Dioxide Level 32, Anion Gap 9, Blood Urea Nitrogen 68H, Creatinine 2.2H, Estimat Glomerular Filtration Rate 29.8, Glucose Level 156H, Uric Acid 11.0H, Calcium Level 8.4L, Phosphorus Level 4.1, Magnesium Level 2.5H, Total Bilirubin 0.7, Aspartate Amino Transf (AST/SGOT) 13L, Alanine Aminotransferase ( ALT/SGPT) 37, Alkaline Phosphatase 83, C-Reactive Protein, Quantitative 2.1H, Pro-B-Type Natriuretic Peptide 4607H, Total Protein 7.7, Albumin 3.4, Globulin 4.3, Albumin/Globulin Ratio 0.8L, Free Thyroxine 1.12, Free Triiodothyronine 1.8L Height (Feet): 5 Height (Inches): 8.00 Weight (Pounds): 232 Objective Exam GENERAL: No acute distress, appears comfortable, alert HEENT: NCAT, non-icteric eyes, pupils PERRLA Neck: No cervical lymphadenopathy, trachea midline CV: Regular rate and rhythm, no murmurs rubs or gallops RESP: Clear to auscultation bilaterally, no wheezes/rhonchi/crackles ABD: soft, non-distended, no TTP EXT: Normal muscle tone, +5/5 muscle strength NEURO: No obvious deficits, alert and oriented x3 Ananya Bhatt DO Aug 12, 2019 22:32
[2019-08-13] VITALS: BP 106/60
--- NOTE | 2019-08-13 01:11 | NUR ---
NURSE NOTES: Resting throughout the night. No significant change of condition noted. Will continue to monitor.
[2019-08-13 04:00] VITALS: BP 112/66
[2019-08-13] MEDS: Albuterol/Ipratropium 3ml neb HHN PRN (04:53)
[2019-08-13] MEDS: NovoLOG Insulin Flexpen SUBQ SCH ×4 (05:41→20:42)
[2019-08-13] MEDS: Levothyroxine 125mcg tab ORAL SCH (05:46)
--- NOTE | 2019-08-13 05:51 | NUR ---
NURSE NOTES: Patient refused to take Actos medication. Patient stated, "It causes me liver pain." Wasted medication.
--- NOTE | 2019-08-13 07:10 | NUR ---
HAND-OFF: Report given to PAUL Brannon. Plan of care endorsed.
--- NOTE | 2019-08-13 07:15 | NUR ---
NURSE NOTES: Received report from Chelsey/RN, Patient is asleep, Lying semi-goodman's, resting comfortably. On 2L nasal canula, No acute distress/SOB noted. IV on Right Wrist, patent, No bleeding or infiltration noted. Bed in low position and locked, Bed alarm is on, side rails up x3. Call light within reach. Will continue plan of care.
[2019-08-13 07:54] LABS: EOSINOPHILS % (AUTO) 0.1 % (0.0-3.0); HEMATOCRIT 34.5 % (42.0-52.0); HEMOGLOBIN 11.3 G/DL (14.2-18.0); LYMPHOCYTES % (AUTO) 13.1 % (20.0-45.0); MEAN CORPUSCULAR VOLUME 96 FL (80-99); NEUTROPHILS % (AUTO) 76.9 % (45.0-75.0); PLATELET COUNT 134 K/UL (150-450); RED BLOOD COUNT 3.59 M/UL (4.70-6.10); RED CELL DISTRIBUTION WIDTH 13.1 % (11.6-14.8); WHITE BLOOD COUNT 5.6 K/UL (4.8-10.8)
[2019-08-13 08:00] VITALS: BP 103/63
[2019-08-13 08:30] LABS: ALANINE AMINOTRANSFERASE 25 U/L (12-78); ALBUMIN 3.3 G/DL (3.4-5.0); ALBUMIN/GLOBULIN RATIO 0.8 (1.0-2.7); ALKALINE PHOSPHATASE 82 U/L (46-116); ANION GAP 5 mmol/L (5-15); ASPARTATE AMINO TRANSFERASE 13 U/L (15-37); BILIRUBIN,TOTAL 0.6 MG/DL (0.2-1.0); BLOOD UREA NITROGEN 66 mg/dL (7-18); CALCIUM 8.4 MG/DL (8.5-10.1); CARBON DIOXIDE 32 MMOL/L (21-32); CHLORIDE 103 MMOL/L (98-107); PHOSPHORUS 3.6 MG/DL (2.5-4.9); POTASSIUM 4.3 MMOL/L (3.5-5.1); SODIUM 140 MMOL/L (136-145)
--- NOTE | 2019-08-13 08:44 | General Progress Note ---
Assessment/Plan Status: stable Assessment/Plan: 59 year old male with systolic chf, EF 30%, HTN, CAD s/p bypass graft, sever tricuspid regurgitation, chronic kidney disease, diabetes, hypothyroidism, depression, sleep apnea, scrotal hernia presented with sob and edema #Exacerbation of systolic CHF ejection fraction of 30%. Repeat Echo EF 55% #Coronary artery disease with history of coronary artery bypass at [facility], ruled out for [place] #Atrial flutter s/p DCCV 06/2018. On Amiodarone 100 daily #HTN #History of severe TR graft. repeat 2D Echocardiogram Cardiology consult Lasix 40 mg IV b.i.d. Decrease to 40mg IV daily Coreg hold off on lisinopril and Aldactone in view of renal failure. Hold Bumex as well since on IV Lasix continue amiodarone 100 #history of ROJAS cirrhosis monitor #EMMANUELLE vs EMMANUELLE on CKD monitor renal function. Avoid nephrotoxic meds Nephrology consult Cr improving #COPD #NILSA Hold Diamox for now Duoneb o2 as needed to keep o2 sat >90% ?cpa, resume if already using at home Pulmonary consult appreciated #Obesity residential treatment counselor regarding weight loss and life style modification #Severe metabolic acidosis on admission, ? error, resolved #Hypothyroidism continue levothyroxine GI ppx: ppi VTE ppx: scd boots, early ambulation I spent 40 minutes on this encounter. >50% spent on counselling and care coordination time of note may not reflect time of encounter Subjective Date patient seen: Aug 13, 2019 Allergies: Coded Allergies: LISINOPRIL (Verified Allergy, Unknown, 08/08/19) METOPROLOL (Verified Allergy, Unknown, 08/08/19) OXYCODONE (Verified Allergy, Unknown, 08/08/19) RANITIDINE (Verified Allergy, Unknown, 08/08/19) Subjective follow up for CHF exacerbation. He has been stable overnight. breathing better. seen by pulmonary Objective Last 24 Hour Vital Signs Date Time Temp Pulse Resp B/P (MAP) Pulse Ox O2 Delivery O2 Flow Rate FiO2 08/13/19 08:00 97.5 56 20 103/63 (76) 94 08/13/19 04:53 61 20 97 Nasal Cannula 2.0 28 59 20 94 08/13/19 04:00 52 08/13/19 04:00 97.8 93 20 112/66 (81) 95 1/27/20 00:00 53 08/13/19 00:00 96.4 64 20 106/60 (75) 96 08/12/19 21:00 Nasal Cannula 2.0 08/12/19 20:50 59 20 98 Nasal Cannula 2.0 28 56 20 96 08/12/19 20:31 54 124/73 08/12/19 20:00 97.2 54 20 126/74 (91) 96 08/12/19 20:00 51 08/12/19 19:43 94 Nasal Cannula 2.0 28 08/12/19 19:43 60 20 94 Nasal Cannula 2.0 28 08/12/19 16:00 52 08/12/19 15:41 97.3 53 18 102/64 (77) 95 08/12/19 12:00 97.2 55 18 129/69 (89) 92 08/12/19 12:00 52 08/12/19 09:00 Nasal Cannula 2.0 Intake and Output 08/12/19 08/13/19 18:59 06:59 Intake Total 320 ml 120 ml Output Total 1800 ml 600 ml Balance -1480 ml -480 ml Intake Oral 320 ml 120 ml Output Urine Total 1800 ml 600 ml Laboratory Tests 08/13/19 06:26: White Blood Count 5.6, Red Blood Count 3.59L, Hemoglobin 11.3L, Hematocrit 34.5L , Mean Corpuscular Volume 96, Mean Corpuscular Hemoglobin 31.4H, Mean Corpuscular Hemoglobin Concent 32.7, Red Cell Distribution Width 13.1, Platelet Count 134L, Mean Platelet Volume 6.1L, Neutrophils (%) (Auto) 76.9H, Lymphocytes (%) (Auto) 13.1L, Monocytes (%) (Auto) 8.0, Eosinophils (%) (Auto) 0.1, Basophils (%) (Auto) 2.0, Sodium Level 140, Potassium Level 4.3, Chloride Level 103, Carbon Dioxide Level 32, Anion Gap 5, Blood Urea Nitrogen 66H, Creatinine 2.0H, Estimat Glomerular Filtration Rate 33.3, Glucose Level 130H, Uric Acid 11.0H, Calcium Level 8.4L, Phosphorus Level 3.6, Magnesium Level 2.5H , Total Bilirubin 0.6, Aspartate Amino Transf (AST/SGOT) 13L, Alanine Aminotransferase (ALT/SGPT) 25, Alkaline Phosphatase 82, C-Reactive Protein, Quantitative 2.3H, Pro-B-Type Natriuretic Peptide 3397H, Total Protein 7.5, Albumin 3.3L, Globulin 4.2, Albumin/Globulin Ratio 0.8L Height (Feet): 5 Height (Inches): 8.00 Weight (Pounds): 232 Objective General Appearance: no apparent distress, alert Lines, tubes and drains: peripheral HEENT: normocephalic, atraumatic Neck: non-tender, supple Respiratory/Chest: lungs clear, normal breath sounds, no respiratory distress Cardiovascular/Chest: normal rate, regular rhythm, no gallop/murmur, JVD Abdomen: normal bowel sounds, non tender, soft, distended Extremities: moderate edema, other - chronic skin darkening and changes Skin Exam: warm/dry Neurologic: operational risk consultant II-XII grossly normal, no motor/sensory deficits, oriented x 3 , responsive Musculoskeletal: normal muscle bulk Haris Turner M.D. Aug 13, 2019 08:44
[2019-08-13] MEDS: Carvedilol 6.25mg Tab ORAL SCH ×2 (09:30→20:30)
[2019-08-13] MEDS: Amiodarone 200mg tab ORAL SCH (09:31)
[2019-08-13] MEDS: Docusate 100mg cap ORAL SCH ×3 (09:31→17:12)
--- NOTE | 2019-08-13 11:01 | NUR ---
RADIOLOGY DEPT., CHEST X-RAY DONE.-P.DYE
[2019-08-13 12:00] VITALS: BP 113/67
--- NOTE | 2019-08-13 12:32 | Pulmonology Progress Note ---
Assessment/Plan Assessment/Plan Problem List: * shortness of breath * Acute bronchospasm * Acute CHF exacerbation * Possible viral tracheobronchitis * DM * hx past heavy tobacco use Plan: * monitor volumes, cont diuresis * send viral culture * no abx * Duonebs q6wa * May consider short burst of steroids. Subjective ROS Limited/Unobtainable: No Interval Events: shortness of breath, cough, felt fevers. Wheezing. Allergies: Coded Allergies: LISINOPRIL (Verified Allergy, Unknown, 08/08/19) METOPROLOL (Verified Allergy, Unknown, 08/08/19) OXYCODONE (Verified Allergy, Unknown, 08/08/19) RANITIDINE (Verified Allergy, Unknown, 08/08/19) All Systems: reviewed and negative except above Objective Last 24 Hour Vital Signs Date Time Temp Pulse Resp B/P (MAP) Pulse Ox O2 Delivery O2 Flow Rate FiO2 08/13/19 09:30 56 103/63 08/13/19 09:00 Nasal Cannula 2.0 08/13/19 08:00 64 08/13/19 08:00 97.5 56 20 103/63 (76) 94 08/13/19 04:53 61 20 97 Nasal Cannula 2.0 28 59 20 94 08/13/19 04:00 52 08/13/19 04:00 97.8 93 20 112/66 (81) 95 08/13/19 00:00 53 08/13/19 00:00 96.4 64 20 106/60 (75) 96 08/12/19 21:00 Nasal Cannula 2.0 08/12/19 20:50 59 20 98 Nasal Cannula 2.0 28 56 20 96 08/12/19 20:31 54 124/73 08/12/19 20:00 97.2 54 20 126/74 (91) 96 08/12/19 20:00 51 08/12/19 19:43 94 Nasal Cannula 2.0 28 08/12/19 19:43 60 20 94 Nasal Cannula 2.0 28 08/12/19 16:00 52 08/12/19 15:41 97.3 53 18 102/64 (77) 95 Intake and Output 08/12/19 08/13/19 19:00 07:00 Intake Total 320 ml 120 ml Output Total 1800 ml 600 ml Balance -1480 ml -480 ml Intake Oral 320 ml 120 ml Output Urine Total 1800 ml 600 ml General Appearance: no acute distress HEENT: mucous membranes moist Respiratory/Chest: expiratory wheezing Cardiovascular: regular rhythm Abdomen: soft, non tender Extremities: no edema Neurologic/Psychiatric: alert Laboratory Tests 08/13/19 06:26: White Blood Count 5.6, Red Blood Count 3.59L, Hemoglobin 11.3L, Hematocrit 34.5L , Mean Corpuscular Volume 96, Mean Corpuscular Hemoglobin 31.4H, Mean Corpuscular Hemoglobin Concent 32.7, Red Cell Distribution Width 13.1, Platelet Count 134L, Mean Platelet Volume 6.1L, Neutrophils (%) (Auto) 76.9H, Lymphocytes (%) (Auto) 13.1L, Monocytes (%) (Auto) 8.0, Eosinophils (%) (Auto) 0.1, Basophils (%) (Auto) 2.0, Sodium Level 140, Potassium Level 4.3, Chloride Level 103, Carbon Dioxide Level 32, Anion Gap 5, Blood Urea Nitrogen 66H, Creatinine 2.0H, Estimat Glomerular Filtration Rate 33.3, Glucose Level 130H, Uric Acid 11.0H, Calcium Level 8.4L, Phosphorus Level 3.6, Magnesium Level 2.5H , Total Bilirubin 0.6, Aspartate Amino Transf (AST/SGOT) 13L, Alanine Aminotransferase (ALT/SGPT) 25, Alkaline Phosphatase 82, C-Reactive Protein, Quantitative 2.3H, Pro-B-Type Natriuretic Peptide 3397H, Total Protein 7.5, Albumin 3.3L, Globulin 4.2, Albumin/Globulin Ratio 0.8L Current Medications Medications (Trade) Dose Ordered Sig/Florinda Route PRN Reason Start Time Stop Time Status Last Admin Dose Admin Albuterol/ Ipratropium (Albuterol/ Ipratropium) 3 ml Q4H PRN HHN Shortness of Breath 08/09/19 18:15 08/14/19 18:14 08/13/19 04:53 Amiodarone HCl (Cordarone) 100 mg DAILY ORAL 08/12/19 09:00 09/08/19 20:59 08/13/19 09:31 Atorvastatin Calcium (Lipitor) 40 mg BEDTIME ORAL 08/09/19 21:00 09/08/19 20:59 08/12/19 20:26 Carvedilol (Coreg) 6.25 mg EVERY 12 HOURS ORAL 08/10/19 21:00 09/08/19 20:59 08/13/19 09:30 Dextrose (Dextrose 50%) 25 ml Q30M PRN IV Hypoglycemia 08/12/19 17:45 09/11/19 17:44 Dextrose (Dextrose 50%) 50 ml Q30M PRN IV Hypoglycemia 08/12/19 17:45 09/11/19 17:44 Docusate Sodium (Colace) 100 mg THREE TIMES A DAY ORAL 08/10/19 18:00 09/09/19 17:59 08/13/19 12:20 Furosemide (Lasix) 40 mg DAILY IV 08/13/19 09:00 09/09/19 08:59 08/13/19 09:31 Insulin Aspart (NovoLOG) BEFORE MEALS AND HS SUBQ 08/12/19 21:00 09/11/19 20:59 08/13/19 12:26 Iron Sucrose 100 mg/Sodium Chloride 60 ml @ 240 mls/hr QHS IV 08/13/19 21:00 09/12/19 20:59 Levothyroxine Sodium (Synthroid) 125 mcg ACBREAKFAST ORAL 08/12/19 06:30 09/09/19 06:29 08/13/19 05:46 Mirtazapine (Remeron) 15 mg BEDTIME ORAL 08/10/19 21:00 09/09/19 20:59 08/12/19 20:25 Pantoprazole (Protonix) 40 mg BID ORAL 08/10/19 18:00 09/09/19 08:59 08/13/19 09:31 Pioglitazone HCl (Actos) 15 mg ACBREAKFAST ORAL 08/13/19 06:30 09/12/19 06:29 Tamsulosin HCl (Flomax) 0.4 mg BEDTIME ORAL 08/12/19 21:00 09/11/19 20:59 08/12/19 20:25 Davion Lund MD Aug 13, 2019 12:32
--- NOTE | 2019-08-13 12:56 | Nephrology Progress Note ---
Assessment/Plan Problem List: (1) Renal failure (ARF), acute on chronic (2) CHF (congestive heart failure) (3) DMII (diabetes mellitus, type 2) (4) Hypothyroidism Assessment acute on chronic renal failure- CHF s/p CABGS- TR DM HypoThyroidism Plan Optimize cardiac status monitor renal parameters avoid nephrotoxics per orders Subjective ROS Limited/Unobtainable: No Constitutional: Reports: malaise Objective Objective Last 24 Hour Vital Signs Date Time Temp Pulse Resp B/P (MAP) Pulse Ox O2 Delivery O2 Flow Rate FiO2 08/13/19 12:00 96.8 63 20 113/67 (82) 94 08/13/19 09:30 56 103/63 08/13/19 09:00 Nasal Cannula 2.0 08/13/19 08:00 64 08/13/19 08:00 97.5 56 20 103/63 (76) 94 08/13/19 04:53 61 20 97 Nasal Cannula 2.0 28 59 20 94 08/13/19 04:00 52 08/13/19 04:00 97.8 93 20 112/66 (81) 95 08/13/19 00:00 53 08/13/19 00:00 96.4 64 20 106/60 (75) 96 08/12/19 21:00 Nasal Cannula 2.0 08/12/19 20:50 59 20 98 Nasal Cannula 2.0 28 56 20 96 08/12/19 20:31 54 124/73 08/12/19 20:00 97.2 54 20 126/74 (91) 96 08/12/19 20:00 51 08/12/19 19:43 94 Nasal Cannula 2.0 28 08/12/19 19:43 60 20 94 Nasal Cannula 2.0 28 08/12/19 16:00 52 08/12/19 15:41 97.3 53 18 102/64 (77) 95 Intake and Output 08/12/19 08/13/19 19:00 07:00 Intake Total 320 ml 120 ml Output Total 1800 ml 600 ml Balance -1480 ml -480 ml Intake Oral 320 ml 120 ml Output Urine Total 1800 ml 600 ml Current Medications Medications (Trade) Dose Ordered Sig/Florinda Route PRN Reason Start Time Stop Time Status Last Admin Dose Admin Albuterol/ Ipratropium (Albuterol/ Ipratropium) 3 ml Q4H PRN HHN Shortness of Breath 08/09/19 18:15 08/14/19 18:14 08/13/19 04:53 Albuterol/ Ipratropium (Albuterol/ Ipratropium) 3 ml Q6HRT HHN 08/13/19 13:00 08/18/19 12:59 Amiodarone HCl (Cordarone) 100 mg DAILY ORAL 08/12/19 09:00 09/08/19 20:59 08/13/19 09:31 Atorvastatin Calcium (Lipitor) 40 mg BEDTIME ORAL 08/09/19 21:00 09/08/19 20:59 08/12/19 20:26 Carvedilol (Coreg) 6.25 mg EVERY 12 HOURS ORAL 08/10/19 21:00 09/08/19 20:59 08/13/19 09:30 Dextrose (Dextrose 50%) 25 ml Q30M PRN IV Hypoglycemia 08/12/19 17:45 09/11/19 17:44 Dextrose (Dextrose 50%) 50 ml Q30M PRN IV Hypoglycemia 08/12/19 17:45 09/11/19 17:44 Docusate Sodium (Colace) 100 mg THREE TIMES A DAY ORAL 08/10/19 18:00 09/09/19 17:59 08/13/19 12:20 Furosemide (Lasix) 40 mg DAILY IV 08/13/19 09:00 09/09/19 08:59 08/13/19 09:31 Insulin Aspart (NovoLOG) BEFORE MEALS AND HS SUBQ 08/12/19 21:00 09/11/19 20:59 08/13/19 12:26 Iron Sucrose 100 mg/Sodium Chloride 60 ml @ 240 mls/hr QHS IV 08/13/19 21:00 09/12/19 20:59 Levothyroxine Sodium (Synthroid) 125 mcg ACBREAKFAST ORAL 08/12/19 06:30 09/09/19 06:29 08/13/19 05:46 Mirtazapine (Remeron) 15 mg BEDTIME ORAL 08/10/19 21:00 09/09/19 20:59 08/12/19 20:25 Pantoprazole (Protonix) 40 mg BID ORAL 08/10/19 18:00 09/09/19 08:59 08/13/19 09:31 Pioglitazone HCl (Actos) 15 mg ACBREAKFAST ORAL 08/13/19 06:30 09/12/19 06:29 Tamsulosin HCl (Flomax) 0.4 mg BEDTIME ORAL 08/12/19 21:00 09/11/19 20:59 08/12/19 20:25 Laboratory Tests 08/13/19 06:26: White Blood Count 5.6, Red Blood Count 3.59L, Hemoglobin 11.3L, Hematocrit 34.5L , Mean Corpuscular Volume 96, Mean Corpuscular Hemoglobin 31.4H, Mean Corpuscular Hemoglobin Concent 32.7, Red Cell Distribution Width 13.1, Platelet Count 134L, Mean Platelet Volume 6.1L, Neutrophils (%) (Auto) 76.9H, Lymphocytes (%) (Auto) 13.1L, Monocytes (%) (Auto) 8.0, Eosinophils (%) (Auto) 0.1, Basophils (%) (Auto) 2.0, Sodium Level 140, Potassium Level 4.3, Chloride Level 103, Carbon Dioxide Level 32, Anion Gap 5, Blood Urea Nitrogen 66H, Creatinine 2.0H, Estimat Glomerular Filtration Rate 33.3, Glucose Level 130H, Uric Acid 11.0H, Calcium Level 8.4L, Phosphorus Level 3.6, Magnesium Level 2.5H , Total Bilirubin 0.6, Aspartate Amino Transf (AST/SGOT) 13L, Alanine Aminotransferase (ALT/SGPT) 25, Alkaline Phosphatase 82, C-Reactive Protein, Quantitative 2.3H, Pro-B-Type Natriuretic Peptide 3397H, Total Protein 7.5, Albumin 3.3L, Globulin 4.2, Albumin/Globulin Ratio 0.8L Height (Feet): 5 Height (Inches): 8.00 Weight (Pounds): 232 General Appearance: no apparent distress Cardiovascular: bradycardia Respiratory/Chest: decreased breath sounds Abdomen: soft Jens Begum MD Aug 13, 2019 12:56
--- NOTE | 2019-08-13 13:04 | Diagnostic Imaging Report ---
Indication: Dyspnea Comparison: 08/08/2019 A single view chest radiograph was obtained. Findings: No definite infiltrate or pulmonary vascular congestion identified. Sternotomy noted. The heart is enlarged. The aorta is mildly enlarged consistent with atherosclerotic vascular disease. The bones are osteopenic. Impression: No acute disease No change appreciated.
[2019-08-13] MEDS: Albuterol/Ipratropium 3ml neb HHN SCH ×2 (13:58→20:58)
--- NOTE | 2019-08-13 14:31 | Cardiac Electrophysiology PN ---
Assessment/Plan Assessment/Plan 1. 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 Repeat echocardiogram showed EF 55%. On Lasix 40 mg IV daily, Coreg and Off lisinopril and Aldactone in view of renal failure, creatinine 2.3 and risk of hyperkalemia. 2. S/P CABG at [facility]. Ruled out for HI. 3. History of severe tricuspid regurgitation. Echocardiogram showed only moderate TR. 4. Renal failure. Cr 2.5, improved to 2.0 5. COPD. 6. Obesity. 7. HO Gu Cirrhosis 8. Cardiac Cirrhosis with ascites 9. Atrial flutter s/p DCCV 06/2018. On Amiodarone 100 daily DW RN Subjective Subjective No CP or SOB, DC planning Objective Last 24 Hour Vital Signs Date Time Temp Pulse Resp B/P (MAP) Pulse Ox O2 Delivery O2 Flow Rate FiO2 08/13/19 13:58 61 20 97 Nasal Cannula 2.0 28 54 18 94 08/13/19 12:00 59 08/13/19 12:00 96.8 63 20 113/67 (82) 94 08/13/19 09:34 94 Nasal Cannula 2.0 28 08/13/19 09:34 58 18 94 Nasal Cannula 2.0 28 08/13/19 09:30 56 103/63 08/13/19 09:00 Nasal Cannula 2.0 08/13/19 08:00 64 08/13/19 08:00 97.5 56 20 103/63 (76) 94 08/13/19 04:53 61 20 97 Nasal Cannula 2.0 28 59 20 94 08/13/19 04:00 52 08/13/19 04:00 97.8 93 20 112/66 (81) 95 08/13/19 00:00 53 08/13/19 00:00 96.4 64 20 106/60 (75) 96 08/12/19 21:00 Nasal Cannula 2.0 08/12/19 20:50 59 20 98 Nasal Cannula 2.0 28 56 20 96 08/12/19 20:31 54 124/73 08/12/19 20:00 97.2 54 20 126/74 (91) 96 08/12/19 20:00 51 08/12/19 19:43 94 Nasal Cannula 2.0 28 08/12/19 19:43 60 20 94 Nasal Cannula 2.0 28 08/12/19 16:00 52 08/12/19 15:41 97.3 53 18 102/64 (77) 95 Intake and Output 08/12/19 08/13/19 19:00 07:00 Intake Total 320 ml 120 ml Output Total 1800 ml 600 ml Balance -1480 ml -480 ml Intake Oral 320 ml 120 ml Output Urine Total 1800 ml 600 ml Laboratory Tests Test 08/13/19 06:26 White Blood Count 5.6 K/UL (4.8-10.8) Red Blood Count 3.59 M/UL (4.70-6.10) L Hemoglobin 11.3 G/DL (14.2-18.0) L Hematocrit 34.5 % (42.0-52.0) L Mean Corpuscular Volume 96 FL (80-99) Mean Corpuscular Hemoglobin 31.4 PG (27.0-31.0) H Mean Corpuscular Hemoglobin Concent 32.7 G/DL (32.0-36.0) Red Cell Distribution Width 13.1 % (11.6-14.8) Platelet Count 134 K/UL (150-450) L Mean Platelet Volume 6.1 FL (6.5-10.1) L Neutrophils (%) (Auto) 76.9 % (45.0-75.0) H Lymphocytes (%) (Auto) 13.1 % (20.0-45.0) L Monocytes (%) (Auto) 8.0 % (1.0-10.0) Eosinophils (%) (Auto) 0.1 % (0.0-3.0) Basophils (%) (Auto) 2.0 % (0.0-2.0) Sodium Level 140 MMOL/L (136-145) Potassium Level 4.3 MMOL/L (3.5-5.1) Chloride Level 103 MMOL/L (98-107) Carbon Dioxide Level 32 MMOL/L (21-32) Anion Gap 5 mmol/L (5-15) Blood Urea Nitrogen 66 mg/dL (7-18) H Creatinine 2.0 MG/DL (0.55-1.30) H Estimat Glomerular Filtration Rate 33.3 mL/min (>60) Glucose Level 130 MG/DL (74-106) H Uric Acid 11.0 MG/DL (2.6-7.2) H Calcium Level 8.4 MG/DL (8.5-10.1) L Phosphorus Level 3.6 MG/DL (2.5-4.9) Magnesium Level 2.5 MG/DL (1.8-2.4) H Total Bilirubin 0.6 MG/DL (0.2-1.0) Aspartate Amino Transf (AST/SGOT) 13 U/L (15-37) L Alanine Aminotransferase (ALT/SGPT) 25 U/L (12-78) Alkaline Phosphatase 82 U/L (46-116) C-Reactive Protein, Quantitative 2.3 mg/dL (0.00-0.90) H Pro-B-Type Natriuretic Peptide 3397 pg/mL (0-125) H Total Protein 7.5 G/DL (6.4-8.2) Albumin 3.3 G/DL (3.4-5.0) L Globulin 4.2 g/dL Albumin/Globulin Ratio 0.8 (1.0-2.7) L Objective HEAD AND NECK: Mild JVD. LUNGS: Clear CARDIOVASCULAR: Regular S1 and S2 with no gallop. Sternotomy scar is intact. ABDOMEN: Soft. EXTREMITIES: 2+ pitting edema. Paramjit Singh MD Aug 13, 2019 14:31
--- NOTE | 2019-08-13 14:55 | NUR ---
RD ASSESSMENT & RECOMMENDATIONS SEE CARE ACTIVITY FOR COMPLETE ASSESSMENT DAILY ESTIMATED NEEDS: Needs based on cardiac, dm 78.9kg adj 20-25 kcals/kg 2063-1551 total kcals 1-1.5 g protein/kg 79-118 g total protein Fluid per MD, on lasix NUTRITION DIAGNOSIS: Decreased sodium and fat needs r/t CHF, obesity as evidenced by pt adm w/ acute CHF, on lasix, BMI >35, obese per guidelines. CURRENT DIET:CCHO LOW/ Cardiac PO DIET RECOMMENDATIONS: CCHO LOW/ Cardiac ADDITIONAL RECOMMENDATIONS: 1) Obtain standing daily wts-> CHF dx, on lasix 2) Monitor BG for hypoglycemia, rec accu checks q4-6. 3) Check lytes daily on lasix, replete as needed
--- NOTE | 2019-08-13 15:35 | NUR ---
CASE MANAGEMENT:REVIEW 08/13/19 SI: AC/CHR CHF. COPD. RENAL FAILURE AFLUTTER 96.8 63 20 113/67 94% ON 2L/NC PLT-134 BUN+66 CR+2.0 IS: IV VENOFER QHS DUONEB HHN Q6HRS RTC IV LASIX QD AMIODARONE PO QD COREG PO Q12 : TELEMETRY STATUS DCP: FROM [facility]
[2019-08-13 16:00] VITALS: BP 112/67
--- NOTE | 2019-08-13 19:01 | General Progress Note ---
Assessment/Plan Problem List: (1) CHF (congestive heart failure) ICD Codes: I50.9 - Heart failure, unspecified SNOMED: 64287575 (2) SOB (shortness of breath) ICD Codes: R06.02 - Shortness of breath SNOMED: 854255496 (3) Renal failure (ARF), acute on chronic ICD Codes: N17.9 - Acute kidney failure, unspecified; N18.9 - Chronic kidney disease, unspecified SNOMED: 342151053 (4) DMII (diabetes mellitus, type 2) ICD Codes: E11.9 - Type 2 diabetes mellitus without complications SNOMED: 48968217 (5) Hypothyroidism ICD Codes: E03.9 - Hypothyroidism, unspecified SNOMED: 75677670 Status: stable Assessment/Plan: DC Actos - not recommended in the setting of CHF start Januvia 25 mg daily continue NISS ac / hs continue adjusted dose of LT4 125 mcg daily repeat thyroid function in 3 weeks Subjective ROS Limited/Unobtainable: Yes Allergies: Coded Allergies: LISINOPRIL (Verified Allergy, Unknown, 08/08/19) METOPROLOL (Verified Allergy, Unknown, 08/08/19) OXYCODONE (Verified Allergy, Unknown, 08/08/19) RANITIDINE (Verified Allergy, Unknown, 08/08/19) Subjective events noted interval notes reviewed Item Value Date Time Bedside Blood Glucose 134 mg/dl H 08/13/19 1630 Bedside Blood Glucose 151 mg/dl H 08/13/19 1226 Bedside Blood Glucose 128 mg/dl H 08/13/19 0630 Bedside Blood Glucose 169 mg/dl H 08/12/19 2116 Objective Last 24 Hour Vital Signs Date Time Temp Pulse Resp B/P (MAP) Pulse Ox O2 Delivery O2 Flow Rate FiO2 08/13/19 16:00 97.7 51 20 112/67 (82) 94 08/13/19 16:00 56 08/13/19 13:58 61 20 97 Nasal Cannula 2.0 28 54 18 94 08/13/19 12:00 59 08/13/19 12:00 96.8 63 20 113/67 (82) 94 08/13/19 09:34 94 Nasal Cannula 2.0 28 08/13/19 09:34 58 18 94 Nasal Cannula 2.0 28 08/13/19 09:30 56 103/63 08/13/19 09:00 Nasal Cannula 2.0 08/13/19 08:00 64 08/13/19 08:00 97.5 56 20 103/63 (76) 94 08/13/19 04:53 61 20 97 Nasal Cannula 2.0 28 59 20 94 08/13/19 04:00 52 08/13/19 04:00 97.8 93 20 112/66 (81) 95 08/13/19 00:00 53 08/13/19 00:00 96.4 64 20 106/60 (75) 96 08/12/19 21:00 Nasal Cannula 2.0 08/12/19 20:50 59 20 98 Nasal Cannula 2.0 28 56 20 96 08/12/19 20:31 54 124/73 08/12/19 20:00 97.2 54 20 126/74 (91) 96 08/12/19 20:00 51 08/12/19 19:43 94 Nasal Cannula 2.0 28 08/12/19 19:43 60 20 94 Nasal Cannula 2.0 28 Intake and Output 08/12/19 08/13/19 19:00 07:00 Intake Total 320 ml 120 ml Output Total 1800 ml 600 ml Balance -1480 ml -480 ml Intake Oral 320 ml 120 ml Output Urine Total 1800 ml 600 ml Laboratory Tests 08/13/19 06:26: White Blood Count 5.6, Red Blood Count 3.59L, Hemoglobin 11.3L, Hematocrit 34.5L , Mean Corpuscular Volume 96, Mean Corpuscular Hemoglobin 31.4H, Mean Corpuscular Hemoglobin Concent 32.7, Red Cell Distribution Width 13.1, Platelet Count 134L, Mean Platelet Volume 6.1L, Neutrophils (%) (Auto) 76.9H, Lymphocytes (%) (Auto) 13.1L, Monocytes (%) (Auto) 8.0, Eosinophils (%) (Auto) 0.1, Basophils (%) (Auto) 2.0, Sodium Level 140, Potassium Level 4.3, Chloride Level 103, Carbon Dioxide Level 32, Anion Gap 5, Blood Urea Nitrogen 66H, Creatinine 2.0H, Estimat Glomerular Filtration Rate 33.3, Glucose Level 130H, Uric Acid 11.0H, Calcium Level 8.4L, Phosphorus Level 3.6, Magnesium Level 2.5H , Total Bilirubin 0.6, Aspartate Amino Transf (AST/SGOT) 13L, Alanine Aminotransferase (ALT/SGPT) 25, Alkaline Phosphatase 82, C-Reactive Protein, Quantitative 2.3H, Pro-B-Type Natriuretic Peptide 3397H, Total Protein 7.5, Albumin 3.3L, Globulin 4.2, Albumin/Globulin Ratio 0.8L Height (Feet): 5 Height (Inches): 8.00 Weight (Pounds): 232 General Appearance: no apparent distress Neck: normal alignment Cardiovascular: normal rate Respiratory/Chest: lungs clear Abdomen: normal bowel sounds Edema: 1+ Arm (L), 1+ Arm (R), 1+ Leg (L), 1+ Leg (R), 1+ Pedal (L), 1+ Pedal ( R), 1+ Generalized Objective Current Medications Medications (Trade) Dose Ordered Sig/Florinda Route PRN Reason Start Time Stop Time Status Last Admin Dose Admin Albuterol/ Ipratropium (Albuterol/ Ipratropium) 3 ml Q4H PRN HHN Shortness of Breath 08/09/19 18:15 08/14/19 18:14 08/13/19 04:53 Albuterol/ Ipratropium (Albuterol/ Ipratropium) 3 ml Q6HRT HHN 08/13/19 13:00 08/18/19 12:59 08/13/19 13:58 Amiodarone HCl (Cordarone) 100 mg DAILY ORAL 08/12/19 09:00 09/08/19 20:59 08/13/19 09:31 Atorvastatin Calcium (Lipitor) 40 mg BEDTIME ORAL 08/09/19 21:00 09/08/19 20:59 08/12/19 20:26 Carvedilol (Coreg) 6.25 mg EVERY 12 HOURS ORAL 08/10/19 21:00 09/08/19 20:59 08/13/19 09:30 Dextrose (Dextrose 50%) 25 ml Q30M PRN IV Hypoglycemia 08/12/19 17:45 09/11/19 17:44 Dextrose (Dextrose 50%) 50 ml Q30M PRN IV Hypoglycemia 08/12/19 17:45 09/11/19 17:44 Docusate Sodium (Colace) 100 mg THREE TIMES A DAY ORAL 08/10/19 18:00 09/09/19 17:59 08/13/19 17:12 Furosemide (Lasix) 40 mg DAILY IV 08/13/19 09:00 09/09/19 08:59 08/13/19 09:31 Insulin Aspart (NovoLOG) BEFORE MEALS AND HS SUBQ 08/12/19 21:00 09/11/19 20:59 08/13/19 12:26 Iron Sucrose 100 mg/Sodium Chloride 60 ml @ 240 mls/hr QHS IV 08/13/19 21:00 09/12/19 20:59 Levothyroxine Sodium (Synthroid) 125 mcg ACBREAKFAST ORAL 08/12/19 06:30 09/09/19 06:29 08/13/19 05:46 Mirtazapine (Remeron) 15 mg BEDTIME ORAL 08/10/19 21:00 09/09/19 20:59 08/12/19 20:25 Pantoprazole (Protonix) 40 mg BID ORAL 08/10/19 18:00 09/09/19 08:59 08/13/19 17:12 Pioglitazone HCl (Actos) 15 mg ACBREAKFAST ORAL 08/13/19 06:30 09/12/19 06:29 Tamsulosin HCl (Flomax) 0.4 mg BEDTIME ORAL 08/12/19 21:00 09/11/19 20:59 08/12/19 20:25 Arturo Roque MD Aug 13, 2019 19:01
--- NOTE | 2019-08-13 19:45 | NUR ---
NURSE NOTES: Received report from Salud Borja RN. Pt in stable condition, A&Ox4, VS WNL, SB at 55 BPM, denies pain at this time. O2 at 96% on 2L via NC. Side rails up x 3, bed in lowest position, and call light within reach. Bed alarm not available on pt's current bed, pt instructed to use call light if assistance is needed; verbalized understanding. Will continue close monitoring and plan of care.
--- NOTE | 2019-08-13 19:45 | NUR ---
HAND-OFF: Report given to Radha/PAUL, Patient awake, in stable condition. Endorsed plan of care.
[2019-08-13 20:00] VITALS: BP 108/66
[2019-08-13] MEDS: Atorvastatin 80mg tab ORAL SCH (20:29)
[2019-08-13] MEDS: Tamsulosin 0.4mg cap ORAL SCH (20:41)
[2019-08-13] MEDS: Iron Sucrose 100 MG in NS 55 ML IV SCH (20:41)
[2019-08-14] VITALS: BP 119/79
[2019-08-14] MEDS: Albuterol/Ipratropium 3ml neb HHN SCH ×4 (01:00→19:46)
[2019-08-14 04:00] VITALS: BP 102/61
[2019-08-14] MEDS: Levothyroxine 125mcg tab ORAL SCH (06:20)
[2019-08-14] MEDS: sitaGLIPtin 25mg tab ORAL SCH (06:20)
[2019-08-14] MEDS: NovoLOG Insulin Flexpen SUBQ SCH ×4 (06:24→21:59)
[2019-08-14 06:53] LABS: BASOPHILS % (AUTO) 1.7 % (0.0-2.0); EOSINOPHILS % (AUTO) 1.4 % (0.0-3.0); HEMATOCRIT 34.4 % (42.0-52.0); HEMOGLOBIN 11.2 G/DL (14.2-18.0); LYMPHOCYTES % (AUTO) 13.1 % (20.0-45.0); MEAN CORPUSCULAR VOLUME 96 FL (80-99); NEUTROPHILS % (AUTO) 74.8 % (45.0-75.0); PLATELET COUNT 128 K/UL (150-450); RED BLOOD COUNT 3.58 M/UL (4.70-6.10); RED CELL DISTRIBUTION WIDTH 13.4 % (11.6-14.8); WHITE BLOOD COUNT 5.5 K/UL (4.8-10.8)
--- NOTE | 2019-08-14 07:05 | General Progress Note ---
Assessment/Plan Problem List: (1) CHF (congestive heart failure) ICD Codes: I50.9 - Heart failure, unspecified SNOMED: 57897141 (2) SOB (shortness of breath) ICD Codes: R06.02 - Shortness of breath SNOMED: 944373178 (3) Renal failure (ARF), acute on chronic ICD Codes: N17.9 - Acute kidney failure, unspecified; N18.9 - Chronic kidney disease, unspecified SNOMED: 866445272 (4) DMII (diabetes mellitus, type 2) ICD Codes: E11.9 - Type 2 diabetes mellitus without complications SNOMED: 74518432 (5) Hypothyroidism ICD Codes: E03.9 - Hypothyroidism, unspecified SNOMED: 35957187 Status: stable Assessment/Plan: continue Januvia 25 mg daily continue NISS ac / hs continue adjusted dose of LT4 125 mcg daily repeat thyroid function in 3 weeks Subjective Allergies: Coded Allergies: LISINOPRIL (Verified Allergy, Unknown, 08/08/19) METOPROLOL (Verified Allergy, Unknown, 08/08/19) OXYCODONE (Verified Allergy, Unknown, 08/08/19) RANITIDINE (Verified Allergy, Unknown, 08/08/19) All Systems: reviewed and negative except above Subjective events noted interval notes reviewed glucose values are stable Item Value Date Time Bedside Blood Glucose 129 mg/dl H 08/14/19 0628 Bedside Blood Glucose 183 mg/dl H 08/13/19 2100 Bedside Blood Glucose 134 mg/dl H 08/13/19 1630 Bedside Blood Glucose 151 mg/dl H 08/13/19 1226 Bedside Blood Glucose 128 mg/dl H 08/13/19 0630 Objective Last 24 Hour Vital Signs Date Time Temp Pulse Resp B/P (MAP) Pulse Ox O2 Delivery O2 Flow Rate FiO2 08/14/19 04:00 51 08/14/19 04:00 97.5 51 19 102/61 (75) 97 08/14/19 00:00 97.7 53 20 119/79 (92) 94 08/14/19 00:00 52 08/13/19 21:04 54 18 96 Nasal Cannula 2.0 28 08/13/19 21:01 96 Nasal Cannula 2.0 28 08/13/19 21:00 Nasal Cannula 2.0 08/13/19 20:58 61 17 98 Nasal Cannula 2.0 28 58 18 96 08/13/19 20:30 88 108/66 08/13/19 20:00 55 08/13/19 20:00 97.3 55 20 108/66 (80) 94 08/13/19 16:00 97.7 51 20 112/67 (82) 94 08/13/19 16:00 56 08/13/19 13:58 61 20 97 Nasal Cannula 2.0 28 54 18 94 08/13/19 12:00 59 08/13/19 12:00 96.8 63 20 113/67 (82) 94 08/13/19 09:34 94 Nasal Cannula 2.0 28 08/13/19 09:34 58 18 94 Nasal Cannula 2.0 28 08/13/19 09:30 56 103/63 08/13/19 09:00 Nasal Cannula 2.0 08/13/19 08:00 64 08/13/19 08:00 97.5 56 20 103/63 (76) 94 Intake and Output 08/13/19 08/14/19 19:00 07:00 Intake Total 720 ml 240 ml Output Total 700 ml Balance 20 ml 240 ml Intake Oral 720 ml IV Total 240 ml Output Urine Total 700 ml # Voids 2 Laboratory Tests 08/14/19 06:04: White Blood Count [Pending], Red Blood Count [Pending], Hemoglobin [Pending], Hematocrit [Pending], Mean Corpuscular Volume [Pending], Mean Corpuscular Hemoglobin [Pending], Mean Corpuscular Hemoglobin Concent [Pending], Red Cell Distribution Width [Pending], Platelet Count [Pending], Mean Platelet Volume [ Pending], Neutrophils (%) (Auto) [Pending], Lymphocytes (%) (Auto) [Pending], Monocytes (%) (Auto) [Pending], Eosinophils (%) (Auto) [Pending], Basophils (%) (Auto) [Pending], Sodium Level [Pending], Potassium Level [Pending], Chloride Level [Pending], Carbon Dioxide Level [Pending], Blood Urea Nitrogen [Pending], Creatinine [Pending], Estimat Glomerular Filtration Rate [Pending], Glucose Level [Pending], Calcium Level [Pending], Total Bilirubin [Pending], Aspartate Amino Transf (AST/SGOT) [Pending], Alanine Aminotransferase (ALT/SGPT) [Pending] , Alkaline Phosphatase [Pending], Total Protein [Pending], Albumin [Pending], Globulin [Pending] Height (Feet): 5 Height (Inches): 8.00 Weight (Pounds): 232 General Appearance: no apparent distress Neck: normal alignment Cardiovascular: normal rate Respiratory/Chest: decreased breath sounds Abdomen: normal bowel sounds Objective Current Medications Medications (Trade) Dose Ordered Sig/Florinda Route PRN Reason Start Time Stop Time Status Last Admin Dose Admin Albuterol/ Ipratropium (Albuterol/ Ipratropium) 3 ml Q4H PRN HHN Shortness of Breath 08/09/19 18:15 08/14/19 18:14 08/13/19 04:53 Albuterol/ Ipratropium (Albuterol/ Ipratropium) 3 ml Q6HRT HHN 08/13/19 13:00 08/18/19 12:59 08/13/19 20:58 Amiodarone HCl (Cordarone) 100 mg DAILY ORAL 08/12/19 09:00 09/08/19 20:59 08/13/19 09:31 Atorvastatin Calcium (Lipitor) 40 mg BEDTIME ORAL 08/09/19 21:00 09/08/19 20:59 08/13/19 20:29 Carvedilol (Coreg) 6.25 mg EVERY 12 HOURS ORAL 08/10/19 21:00 09/08/19 20:59 08/13/19 20:30 Dextrose (Dextrose 50%) 25 ml Q30M PRN IV Hypoglycemia 08/12/19 17:45 09/11/19 17:44 Dextrose (Dextrose 50%) 50 ml Q30M PRN IV Hypoglycemia 08/12/19 17:45 09/11/19 17:44 Docusate Sodium (Colace) 100 mg THREE TIMES A DAY ORAL 08/10/19 18:00 09/09/19 17:59 08/13/19 17:12 Furosemide (Lasix) 40 mg DAILY IV 08/13/19 09:00 09/09/19 08:59 08/13/19 09:31 Insulin Aspart (NovoLOG) BEFORE MEALS AND HS SUBQ 08/12/19 21:00 09/11/19 20:59 08/13/19 20:42 Iron Sucrose 100 mg/Sodium Chloride 60 ml @ 240 mls/hr QHS IV 08/13/19 21:00 09/12/19 20:59 08/13/19 20:41 Levothyroxine Sodium (Synthroid) 125 mcg ACBREAKFAST ORAL 08/12/19 06:30 09/09/19 06:29 08/14/19 06:20 Mirtazapine (Remeron) 15 mg BEDTIME ORAL 08/10/19 21:00 09/09/19 20:59 08/13/19 20:40 Pantoprazole (Protonix) 40 mg BID ORAL 08/10/19 18:00 09/09/19 08:59 08/13/19 17:12 Sitagliptin Phosphate (Januvia) 25 mg ACBREAKFAST ORAL 08/14/19 06:30 09/13/19 06:29 08/14/19 06:20 Tamsulosin HCl (Flomax) 0.4 mg BEDTIME ORAL 08/12/19 21:00 09/11/19 20:59 08/13/19 20:41 Arturo Roque MD Aug 14, 2019 07:05
[2019-08-14 07:35] LABS: ALANINE AMINOTRANSFERASE 21 U/L (12-78); ALBUMIN 3.2 G/DL (3.4-5.0); ALBUMIN/GLOBULIN RATIO 0.8 (1.0-2.7); ALKALINE PHOSPHATASE 79 U/L (46-116); ANION GAP 6 mmol/L (5-15); ASPARTATE AMINO TRANSFERASE 12 U/L (15-37); BILIRUBIN,TOTAL 0.6 MG/DL (0.2-1.0); BLOOD UREA NITROGEN 61 mg/dL (7-18); CALCIUM 8.3 MG/DL (8.5-10.1); CARBON DIOXIDE 31 MMOL/L (21-32); CHLORIDE 105 MMOL/L (98-107); CREATININE 2.2 MG/DL (0.55-1.30); POTASSIUM 4.3 MMOL/L (3.5-5.1); SODIUM 142 MMOL/L (136-145)
--- NOTE | 2019-08-14 07:50 | NUR ---
HAND-OFF: Report given to Brandy Way RN. Pt is in stable condition.
[2019-08-14 08:00] VITALS: BP 100/58
[2019-08-14] MEDS ORDERED: Tubing IV Secondary IV ONE (08:26)
--- NOTE | 2019-08-14 08:31 | Consultation ---
DATE OF CONSULTATION: 08/12/2019 NOTE: POOR AUDIO CONSULTING PHYSICIAN: Kemar Phillips M.D. REFERRING PHYSICIAN: Antonio Monteiro M.D. REASON FOR CONSULTATION: I was asked to see this 69-year-old male by Dr. Antonio Monteiro in endocrinology consultation for management of type 2 diabetes mellitus. PAST MEDICAL HISTORY: Congestive heart failure. Currently diabetic for several years, but had not been treated. Noticed to have an elevated hemoglobin A1c of 6.9. FAMILY HISTORY: Unremarkable. PERSONAL HISTORY: Unremarkable. REVIEW OF SYSTEMS: Unremarkable. . PHYSICAL EXAMINATION: GENERAL: The patient is in no acute distress. VITAL SIGNS: Blood pressure is 102/64, pulse 53, respiratory rate , temperature 97.3 degrees. HEAD AND NECK: Unremarkable. No jugular venous distention. LUNGS: Decreased breath sounds. CARDIOVASCULAR: Regular. ABDOMEN: Obese. Bowel sounds present. EXTREMITIES: No edema. NEUROLOGICAL: Cranial nerves II through XII are grossly intact. Toes are downgoing to plantar stimulation. LABORATORY DATA: Glucose . Hemoglobin A1c 6.9. . Creatinine is 2.2, likely renal insufficiency. PLAN: Recommend . Kemar Phillips M.D. DR: HAO JOB#: [id number] CC:
[2019-08-14] MEDS: Docusate 100mg cap ORAL SCH ×3 (08:51→17:19)
[2019-08-14] MEDS: Amiodarone 200mg tab ORAL SCH (08:55)
[2019-08-14] MEDS: Carvedilol 6.25mg Tab ORAL SCH ×2 (08:56→22:02)
[2019-08-14 10:15] LABS: PHOSPHORUS 3.5 MG/DL (2.5-4.9)
--- NOTE | 2019-08-14 10:17 | NUR ---
NURSE NOTES: received pt in the bed, awake, alert, oriented, vital signs stable, no co pain, no SOB, respiration regular, skin warm and dry to touch, intact, use urinal, tolerate diet well, bed in low position, call light within reach.
--- NOTE | 2019-08-14 10:51 | Pulmonology Progress Note ---
Assessment/Plan Assessment/Plan Problem List: * shortness of breath * Acute bronchospasm * Acute CHF exacerbation * Possible viral tracheobronchitis * DM * hx past heavy tobacco use Plan: * monitor volumes, cont diuresis * send viral culture * no abx * Duonebs q6wa * Prednisone 40 mg daily x 5 days Subjective ROS Limited/Unobtainable: No Interval Events: still coughing and wheezing. No fevers. CXR fairly clear. Allergies: Coded Allergies: LISINOPRIL (Verified Allergy, Unknown, 08/08/19) METOPROLOL (Verified Allergy, Unknown, 08/08/19) OXYCODONE (Verified Allergy, Unknown, 08/08/19) RANITIDINE (Verified Allergy, Unknown, 08/08/19) All Systems: reviewed and negative except above Objective Last 24 Hour Vital Signs Date Time Temp Pulse Resp B/P (MAP) Pulse Ox O2 Delivery O2 Flow Rate FiO2 08/14/19 09:00 Nasal Cannula 2.0 08/14/19 08:56 55 100/58 08/14/19 08:27 55 20 97 Nasal Cannula 2.0 28 55 18 93 08/14/19 08:27 93 Nasal Cannula 2.0 28 08/14/19 08:00 57 08/14/19 08:00 97.5 59 18 100/58 (72) 92 08/14/19 04:00 51 08/14/19 04:00 97.5 51 19 102/61 (75) 97 08/14/19 00:00 97.7 53 20 119/79 (92) 94 08/14/19 00:00 52 08/13/19 21:04 54 18 96 Nasal Cannula 2.0 28 08/13/19 21:01 96 Nasal Cannula 2.0 28 08/13/19 21:00 Nasal Cannula 2.0 08/13/19 20:58 61 17 98 Nasal Cannula 2.0 28 58 18 96 08/13/19 20:30 88 108/66 08/13/19 20:00 55 08/13/19 20:00 97.3 55 20 108/66 (80) 94 08/13/19 16:00 97.7 51 20 112/67 (82) 94 08/13/19 16:00 56 08/13/19 13:58 61 20 97 Nasal Cannula 2.0 28 54 18 94 08/13/19 12:00 59 08/13/19 12:00 96.8 63 20 113/67 (82) 94 Intake and Output 08/13/19 08/14/19 19:00 07:00 Intake Total 720 ml 240 ml Output Total 700 ml Balance 20 ml 240 ml Intake Oral 720 ml IV Total 240 ml Output Urine Total 700 ml # Voids 2 General Appearance: no acute distress HEENT: atraumatic Respiratory/Chest: expiratory wheezing Cardiovascular: regular rhythm Abdomen: soft, non tender Extremities: no edema Neurologic/Psychiatric: alert Laboratory Tests 08/14/19 06:04: White Blood Count 5.5, Red Blood Count 3.58L, Hemoglobin 11.2L, Hematocrit 34.4L , Mean Corpuscular Volume 96, Mean Corpuscular Hemoglobin 31.2H, Mean Corpuscular Hemoglobin Concent 32.4, Red Cell Distribution Width 13.4, Platelet Count 128L, Mean Platelet Volume 6.1L, Neutrophils (%) (Auto) 74.8, Lymphocytes (%) (Auto) 13.1L, Monocytes (%) (Auto) 9.0, Eosinophils (%) (Auto) 1.4, Basophils (%) (Auto) 1.7, Sodium Level 142, Potassium Level 4.3, Chloride Level 105, Carbon Dioxide Level 31, Anion Gap 6, Blood Urea Nitrogen 61H, Creatinine 2.2H, Estimat Glomerular Filtration Rate 29.8, Glucose Level 132H, Calcium Level 8.3L, Phosphorus Level 3.5, Magnesium Level 2.4, Total Bilirubin 0.6, Aspartate Amino Transf (AST/SGOT) 12L, Alanine Aminotransferase (ALT/SGPT) 21, Alkaline Phosphatase 79, Total Protein 7.3, Albumin 3.2L, Globulin 4.1, Albumin/ Globulin Ratio 0.8L Current Medications Medications (Trade) Dose Ordered Sig/Florinda Route PRN Reason Start Time Stop Time Status Last Admin Dose Admin Albuterol/ Ipratropium (Albuterol/ Ipratropium) 3 ml Q4H PRN HHN Shortness of Breath 08/09/19 18:15 08/14/19 18:14 08/13/19 04:53 Albuterol/ Ipratropium (Albuterol/ Ipratropium) 3 ml Q6HRT HHN 08/13/19 13:00 08/18/19 12:59 08/14/19 08:27 Amiodarone HCl (Cordarone) 100 mg DAILY ORAL 08/12/19 09:00 09/08/19 20:59 08/13/19 09:31 Atorvastatin Calcium (Lipitor) 40 mg BEDTIME ORAL 08/09/19 21:00 09/08/19 20:59 08/13/19 20:29 Carvedilol (Coreg) 6.25 mg EVERY 12 HOURS ORAL 08/10/19 21:00 09/08/19 20:59 08/13/19 20:30 Dextrose (Dextrose 50%) 25 ml Q30M PRN IV Hypoglycemia 08/12/19 17:45 09/11/19 17:44 Dextrose (Dextrose 50%) 50 ml Q30M PRN IV Hypoglycemia 08/12/19 17:45 09/11/19 17:44 Docusate Sodium (Colace) 100 mg THREE TIMES A DAY ORAL 08/10/19 18:00 09/09/19 17:59 08/14/19 08:51 Furosemide (Lasix) 40 mg DAILY IV 08/13/19 09:00 09/09/19 08:59 08/14/19 08:51 Insulin Aspart (NovoLOG) BEFORE MEALS AND HS SUBQ 08/12/19 21:00 09/11/19 20:59 08/13/19 20:42 Iron Sucrose 100 mg/Sodium Chloride 60 ml @ 240 mls/hr QHS IV 08/13/19 21:00 09/12/19 20:59 08/13/19 20:41 Levothyroxine Sodium (Synthroid) 125 mcg ACBREAKFAST ORAL 08/12/19 06:30 09/09/19 06:29 08/14/19 06:20 Mirtazapine (Remeron) 15 mg BEDTIME ORAL 08/10/19 21:00 09/09/19 20:59 08/13/19 20:40 Pantoprazole (Protonix) 40 mg BID ORAL 08/10/19 18:00 09/09/19 08:59 08/14/19 08:51 Sitagliptin Phosphate (Januvia) 25 mg ACBREAKFAST ORAL 08/14/19 06:30 09/13/19 06:29 08/14/19 06:20 Tamsulosin HCl (Flomax) 0.4 mg BEDTIME ORAL 08/12/19 21:00 09/11/19 20:59 08/13/19 20:41 Davion Lund MD Aug 14, 2019 10:51
--- NOTE | 2019-08-14 10:58 | Cardiac Electrophysiology PN ---
Assessment/Plan Assessment/Plan 1. Exacerbation of CHF in a patient with history of post [place], CABG cardiomyopathy and EF 30%. Repeat echocardiogram showed EF 55%. On Lasix 40 mg IV daily, Coreg and Off lisinopril and Aldactone in view of renal failure, creatinine 2.3 and risk of hyperkalemia. 2. S/P CABG at [facility]. Ruled out for [place]. 3. History of severe tricuspid regurgitation. Echocardiogram showed only moderate TR. 4. Renal failure. Cr 2.5, improved to 2.0 5. COPD. 6. Obesity. 7. HO Gu Cirrhosis 8. Cardiac Cirrhosis with ascites 9. Atrial flutter s/p DCCV 06/2018. On Amiodarone 100 daily DW RN Subjective Subjective No CP or SOB, Placement pending. Objective Last 24 Hour Vital Signs Date Time Temp Pulse Resp B/P (MAP) Pulse Ox O2 Delivery O2 Flow Rate FiO2 08/14/19 09:00 Nasal Cannula 2.0 08/14/19 08:56 55 100/58 08/14/19 08:27 55 20 97 Nasal Cannula 2.0 28 55 18 93 08/14/19 08:27 93 Nasal Cannula 2.0 28 08/14/19 08:00 57 08/14/19 08:00 97.5 59 18 100/58 (72) 92 08/14/19 04:00 51 08/14/19 04:00 97.5 51 19 102/61 (75) 97 08/14/19 00:00 97.7 53 20 119/79 (92) 94 08/14/19 00:00 52 08/13/19 21:04 54 18 96 Nasal Cannula 2.0 28 08/13/19 21:01 96 Nasal Cannula 2.0 28 08/13/19 21:00 Nasal Cannula 2.0 08/13/19 20:58 61 17 98 Nasal Cannula 2.0 28 58 18 96 08/13/19 20:30 88 108/66 08/13/19 20:00 55 08/13/19 20:00 97.3 55 20 108/66 (80) 94 08/13/19 16:00 97.7 51 20 112/67 (82) 94 08/13/19 16:00 56 08/13/19 13:58 61 20 97 Nasal Cannula 2.0 28 54 18 94 08/13/19 12:00 59 08/13/19 12:00 96.8 63 20 113/67 (82) 94 Intake and Output 08/13/19 08/14/19 18:59 06:59 Intake Total 720 ml 240 ml Output Total 700 ml Balance 20 ml 240 ml Intake Oral 720 ml IV Total 240 ml Output Urine Total 700 ml # Voids 2 Laboratory Tests Test 08/14/19 06:04 White Blood Count 5.5 K/UL (4.8-10.8) Red Blood Count 3.58 M/UL (4.70-6.10) L Hemoglobin 11.2 G/DL (14.2-18.0) L Hematocrit 34.4 % (42.0-52.0) L Mean Corpuscular Volume 96 FL (80-99) Mean Corpuscular Hemoglobin 31.2 PG (27.0-31.0) H Mean Corpuscular Hemoglobin Concent 32.4 G/DL (32.0-36.0) Red Cell Distribution Width 13.4 % (11.6-14.8) Platelet Count 128 K/UL (150-450) L Mean Platelet Volume 6.1 FL (6.5-10.1) L Neutrophils (%) (Auto) 74.8 % (45.0-75.0) Lymphocytes (%) (Auto) 13.1 % (20.0-45.0) L Monocytes (%) (Auto) 9.0 % (1.0-10.0) Eosinophils (%) (Auto) 1.4 % (0.0-3.0) Basophils (%) (Auto) 1.7 % (0.0-2.0) Sodium Level 142 MMOL/L (136-145) Potassium Level 4.3 MMOL/L (3.5-5.1) Chloride Level 105 MMOL/L (98-107) Carbon Dioxide Level 31 MMOL/L (21-32) Anion Gap 6 mmol/L (5-15) Blood Urea Nitrogen 61 mg/dL (7-18) H Creatinine 2.2 MG/DL (0.55-1.30) H Estimat Glomerular Filtration Rate 29.8 mL/min (>60) Glucose Level 132 MG/DL (74-106) H Calcium Level 8.3 MG/DL (8.5-10.1) L Phosphorus Level 3.5 MG/DL (2.5-4.9) Magnesium Level 2.4 MG/DL (1.8-2.4) Total Bilirubin 0.6 MG/DL (0.2-1.0) Aspartate Amino Transf (AST/SGOT) 12 U/L (15-37) L Alanine Aminotransferase (ALT/SGPT) 21 U/L (12-78) Alkaline Phosphatase 79 U/L (46-116) Total Protein 7.3 G/DL (6.4-8.2) Albumin 3.2 G/DL (3.4-5.0) L Globulin 4.1 g/dL Albumin/Globulin Ratio 0.8 (1.0-2.7) L Objective HEAD AND NECK: Mild JVD. LUNGS: Clear CARDIOVASCULAR: Regular S1 and S2 with no gallop. Sternotomy intact. ABDOMEN: Soft. EXTREMITIES: 2+ pitting edema. Paramjit Singh MD Aug 14, 2019 10:58
[2019-08-14 12:00] VITALS: BP 118/75
--- NOTE | 2019-08-14 12:05 | NUR ---
NURSE NOTES: O2sat on room air 84%.
--- NOTE | 2019-08-14 12:21 | Nephrology Progress Note ---
Assessment/Plan Problem List: (1) Renal failure (ARF), acute on chronic (2) CHF (congestive heart failure) (3) DMII (diabetes mellitus, type 2) (4) Hypothyroidism Assessment acute on chronic renal failure- CHF s/p CABGS- TR DM HypoThyroidism Plan Optimize cardiac status monitor renal parameters avoid nephrotoxics per orders Subjective ROS Limited/Unobtainable: No Constitutional: Reports: malaise, weakness Objective Objective Last 24 Hour Vital Signs Date Time Temp Pulse Resp B/P (MAP) Pulse Ox O2 Delivery O2 Flow Rate FiO2 08/14/19 12:00 96.9 60 19 118/75 (89) 98 08/14/19 09:00 Nasal Cannula 2.0 08/14/19 08:56 55 100/58 08/14/19 08:27 55 20 97 Nasal Cannula 2.0 28 55 18 93 08/14/19 08:27 93 Nasal Cannula 2.0 28 08/14/19 08:00 57 08/14/19 08:00 97.5 59 18 100/58 (72) 92 08/14/19 04:00 51 08/14/19 04:00 97.5 51 19 102/61 (75) 97 08/14/19 00:00 97.7 53 20 119/79 (92) 94 08/14/19 00:00 52 08/13/19 21:04 54 18 96 Nasal Cannula 2.0 28 08/13/19 21:01 96 Nasal Cannula 2.0 28 08/13/19 21:00 Nasal Cannula 2.0 08/13/19 20:58 61 17 98 Nasal Cannula 2.0 28 58 18 96 08/13/19 20:30 88 108/66 08/13/19 20:00 55 08/13/19 20:00 97.3 55 20 108/66 (80) 94 08/13/19 16:00 97.7 51 20 112/67 (82) 94 08/13/19 16:00 56 08/13/19 13:58 61 20 97 Nasal Cannula 2.0 28 54 18 94 Intake and Output 08/13/19 08/14/19 19:00 07:00 Intake Total 720 ml 240 ml Output Total 700 ml Balance 20 ml 240 ml Intake Oral 720 ml IV Total 240 ml Output Urine Total 700 ml # Voids 2 Laboratory Tests 08/14/19 06:04: White Blood Count 5.5, Red Blood Count 3.58L, Hemoglobin 11.2L, Hematocrit 34.4L , Mean Corpuscular Volume 96, Mean Corpuscular Hemoglobin 31.2H, Mean Corpuscular Hemoglobin Concent 32.4, Red Cell Distribution Width 13.4, Platelet Count 128L, Mean Platelet Volume 6.1L, Neutrophils (%) (Auto) 74.8, Lymphocytes (%) (Auto) 13.1L, Monocytes (%) (Auto) 9.0, Eosinophils (%) (Auto) 1.4, Basophils (%) (Auto) 1.7, Sodium Level 142, Potassium Level 4.3, Chloride Level 105, Carbon Dioxide Level 31, Anion Gap 6, Blood Urea Nitrogen 61H, Creatinine 2.2H, Estimat Glomerular Filtration Rate 29.8, Glucose Level 132H, Calcium Level 8.3L, Phosphorus Level 3.5, Magnesium Level 2.4, Total Bilirubin 0.6, Aspartate Amino Transf (AST/SGOT) 12L, Alanine Aminotransferase (ALT/SGPT) 21, Alkaline Phosphatase 79, Total Protein 7.3, Albumin 3.2L, Globulin 4.1, Albumin/ Globulin Ratio 0.8L Height (Feet): 5 Height (Inches): 8.00 Weight (Pounds): 232 General Appearance: no apparent distress Cardiovascular: bradycardia Respiratory/Chest: decreased breath sounds Abdomen: soft Jens Begum MD Aug 14, 2019 12:21
--- NOTE | 2019-08-14 13:26 | NUR ---
CASE MANAGEMENT:REVIEW 08/14/19 SI: AC/CHR CHF. COPD. RENAL FAILURE AFLUTTER 96.9 60 10 118/75 98% ON 2L/NC PLT-128 BUN+61 CR+2.2 IS: IV VENOFER QHS DUONEB HHN Q6HRS RTC IV LASIX QD AMIODARONE PO QD COREG PO Q12 PREDNISONE PO QD : TELEMETRY STATUS DCP: FROM [facility] PLAN: PATIENT'S SATURATION IS 84% ON ROOM AIR HOME OXYGEN HAS BEEN ORDERED FROM "[facility]" HOWEVER THEY AUTHORIZATION FROM INSURANCE BEFORE THEY CAN DELIVER. TRYING TO CALL [employer], PLACED ON HOLD FOR 20 MINUTES AND THEN LINE DISCONNECTED NEED SOMEONE TO CALL [facility]
--- NOTE | 2019-08-14 15:01 | NUR ---
DISCHARGE PLANNING PATIENT CURRENTLY HAS CPAP AT HOME ([facility]) OXYGEN ORDER WAS FAXED EARLIER TO [facility] T; [phone] JUST RECEIVED A CALL FROM [facility] DELILAH BRONSON STATING THEY ARE NOT CONTRACTED WITH [employer] DIRECT CALLED [facility] AND SPOKE WITH DARRYN WHO VERIFIED THEY ARE CONTRACTED WITH [employer] DIRECT FAXED OXYGEN ORDER TO: [facility] T: [phone] F: [phone] Addendum: 08/14/19 at 1649 by ANA MARIA THOMPSON LVN LVN RECEIVED CALL FROM QUINCY WITH [facility] THEY WILL DELIVER PORTABLE OXYGEN TO THE HOSPITAL FIRST THING IN THE MORNING
[2019-08-14 16:00] VITALS: BP 108/64
--- NOTE | 2019-08-14 19:18 | NUR ---
HAND-OFF: Report given to JOYA RN, NO DISTRESS NOTED.
[2019-08-14 20:00] VITALS: BP 109/63
[2019-08-14] MEDS: Tamsulosin 0.4mg cap ORAL SCH (22:00)
[2019-08-14] MEDS: Iron Sucrose 100 MG in NS 55 ML IV SCH (22:00)
[2019-08-14] MEDS: Atorvastatin 80mg tab ORAL SCH (22:00)
[2019-08-15] VITALS: BP 119/66
[2019-08-15] MEDS: Albuterol/Ipratropium 3ml neb HHN SCH ×4 (01:09→19:17)
[2019-08-15 04:00] VITALS: BP 111/64
[2019-08-15] MEDS: NovoLOG Insulin Flexpen SUBQ SCH ×3 (06:25→19:03)
[2019-08-15] MEDS: Levothyroxine 125mcg tab ORAL SCH (06:25)
[2019-08-15] MEDS: sitaGLIPtin 25mg tab ORAL SCH (06:25)
--- NOTE | 2019-08-15 07:15 | NUR ---
NURSE NOTES: pt on campus monitor no signs of cardiac or respiratory request. Pt bed in lowest position, call light within reach. Pt is AOx4, he reports no pain at this time. Will continue to monitor pt and labs.
--- NOTE | 2019-08-15 07:45 | NUR ---
HAND-OFF: Report given to Ronny Borja RN. Endorsed plan of care, pt in stable condition. Addendum: 08/15/19 at 0810 by Mayda Elkins RN HAND-OFF: correction Report given to Erma Griffith RN. Endorsed plan of care, pt in stable condition.
[2019-08-15 08:11] VITALS: BP 108/61
--- NOTE | 2019-08-15 09:16 | General Progress Note ---
Assessment/Plan Status: stable Assessment/Plan: 59 year old male with systolic chf, EF 30%, HTN, CAD s/p bypass graft, sever tricuspid regurgitation, chronic kidney disease, diabetes, hypothyroidism, depression, sleep apnea, scrotal hernia presented with sob and edema #Exacerbation of systolic CHF ejection fraction of 30%. Repeat Echo EF 55% #Coronary artery disease with history of coronary artery bypass at [facility], ruled out for [place] #Atrial flutter s/p DCCV 06/2018. On Amiodarone 100 daily #HTN #History of severe TR graft. repeat 2D Echocardiogram Cardiology consult Lasix 40 mg IV b.i.d. Decreased to 40mg IV daily Coreg hold off on lisinopril and Aldactone in view of renal failure. Hold Bumex as well since on IV Lasix continue amiodarone 100 for home oxygen #history of ROJAS cirrhosis monitor outpatient follow up #EMMANUELLE on CKD monitor renal function. Avoid nephrotoxic meds Nephrology consult Cr improving and has stabilized #COPD #NILSA Hold Diamox for now Duoneb o2 as needed to keep o2 sat >90% ?cpap, resume if already using at home Pulmonary consult appreciated evaluate for home oxygen #Obesity cemetery counselor regarding weight loss and life style modification #Severe metabolic acidosis on admission, ? error, resolved #Hypothyroidism continue levothyroxine GI ppx: ppi VTE ppx: scd boots, early ambulation disposition: home, nerissa needs home o2 I spent 40 minutes on this encounter. >50% spent on counselling and care coordination time of note may not reflect time of encounter Subjective Date patient seen: Aug 15, 2019 Allergies: Coded Allergies: LISINOPRIL (Verified Allergy, Unknown, 08/08/19) METOPROLOL (Verified Allergy, Unknown, 08/08/19) OXYCODONE (Verified Allergy, Unknown, 08/08/19) RANITIDINE (Verified Allergy, Unknown, 08/08/19) Subjective follow up for CHF exacerbation and viral respiratory illness. He has been stable overnight. breathing better. seen by pulmonary. Per RN, o2 sat drops off oxygen, patient says he doesn't have home o2. CM working on [facility] [facility] oxygen Objective Last 24 Hour Vital Signs Date Time Temp Pulse Resp B/P (MAP) Pulse Ox O2 Delivery O2 Flow Rate FiO2 08/15/19 08:11 98.1 59 20 108/61 (77) 98 08/15/19 07:18 97 Nasal Cannula 2.0 28 08/15/19 07:17 66 18 97 Nasal Cannula 2.0 28 60 18 96 08/15/19 04:00 97.7 66 20 111/64 (80) 96 08/15/19 04:00 66 08/15/19 01:09 67 17 99 Nasal Cannula 2.0 28 64 18 95 08/15/19 00:00 97.2 58 18 119/66 (83) 95 08/15/19 00:00 58 08/14/19 22:02 62 109/63 08/14/19 21:00 Nasal Cannula 2.0 08/14/19 20:00 97.5 62 20 109/63 (78) 95 08/14/19 19:48 93 Nasal Cannula 2.0 28 08/14/19 19:46 65 17 99 Nasal Cannula 2.0 62 18 94 08/14/19 16:00 63 08/14/19 16:00 98.3 57 18 108/64 (79) 93 08/14/19 13:02 65 18 98 Nasal Cannula 2.0 62 18 94 08/14/19 12:00 61 08/14/19 12:00 96.9 60 19 118/75 (89) 98 Intake and Output 08/14/19 08/15/19 18:59 06:59 Intake Total 280 ml Output Total 1000 ml Balance -720 ml Intake Oral 280 ml Output Urine Total 1000 ml # Voids 3 Height (Feet): 5 Height (Inches): 8.00 Weight (Pounds): 232 Objective General Appearance: no apparent distress, alert Lines, tubes and drains: peripheral HEENT: normocephalic, atraumatic Neck: non-tender, supple Respiratory/Chest: lungs clear, normal breath sounds, no respiratory distress Cardiovascular/Chest: normal rate, regular rhythm, no gallop/murmur, JVD Abdomen: normal bowel sounds, non tender, soft, distended Extremities: moderate edema, other - chronic skin darkening and changes Skin Exam: warm/dry 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 Aug 15, 2019 09:16
--- NOTE | 2019-08-15 09:16 | General Progress Note ---
Assessment/Plan Status: stable Assessment/Plan: 59 year old male with systolic chf, EF 30%, HTN, CAD s/p bypass graft, sever tricuspid regurgitation, chronic kidney disease, diabetes, hypothyroidism, depression, sleep apnea, scrotal hernia presented with sob and edema #Exacerbation of systolic CHF ejection fraction of 30%. Repeat Echo EF 55% #Coronary artery disease with history of coronary artery bypass at [facility], ruled out for [place] #Atrial flutter s/p DCCV 06/2018. On Amiodarone 100 daily #HTN #History of severe TR graft. repeat 2D Echocardiogram Cardiology consult Lasix 40 mg IV b.i.d. Decreased to 40mg IV daily Coreg hold off on lisinopril and Aldactone in view of renal failure. Hold Bumex as well since on IV Lasix continue amiodarone 100 Evaluate for home oxygen #history of ROJAS cirrhosis monitor outpatient follow up #EMMANUELLE on CKD monitor renal function. Avoid nephrotoxic meds Nephrology consult Cr improving and has stabilized #COPD #NILSA Hold Diamox for now Duoneb o2 as needed to keep o2 sat >90% ?cpap, resume if already using at home Pulmonary consult appreciated evaluate for home oxygen #Obesity debt management counselor regarding weight loss and life style modification #Severe metabolic acidosis on admission, ? error, resolved #Hypothyroidism continue levothyroxine GI ppx: ppi VTE ppx: scd boots, early ambulation disposition: home, nerissa needs home o2 I spent 40 minutes on this encounter. >50% spent on counselling and care coordination time of note may not reflect time of encounter Subjective Date patient seen: Aug 14, 2019 ROS Limited/Unobtainable: No Constitutional: Denies: no symptoms, chills, diaphoresis, fever, malaise, weakness, other HEENT: Denies: no symptoms, eye pain, blurred vision, tearing, double vision, ear pain, ear discharge, nose pain, nose congestion, throat pain, throat swelling, mouth pain, mouth swelling, other Respiratory: Reports: shortness of breath Gastrointestinal/Abdominal: Denies: no symptoms, abdomen distended, abdominal pain, black stools, tarry stools, blood in stool, constipated, diarrhea, difficulty swallowing, nausea, poor appetite, poor fluid intake, rectal bleeding , vomiting, other Genitourinary: Denies: no symptoms, burning, discharge, frequency, flank pain, hematuria, incontinence, pain, urgency, other Neurologic/Psychiatric: Denies: no symptoms, anxiety, depressed, emotional problems, headache, numbness, paresthesia, pre-existing deficit, seizure, tingling, tremors, weakness, other Endocrine: Denies: no symptoms, excessive sweating, flushing, intolerance to cold, intolerance to heat, increased hunger, increased thirst, increased urine, unexplained weight gain, unexplained weight loss, other Hematologic/Lymphatic: Denies: no symptoms, anemia, easy bleeding, easy bruising, other Allergies: Coded Allergies: LISINOPRIL (Verified Allergy, Unknown, 08/08/19) METOPROLOL (Verified Allergy, Unknown, 08/08/19) OXYCODONE (Verified Allergy, Unknown, 08/08/19) RANITIDINE (Verified Allergy, Unknown, 08/08/19) Subjective follow up for CHF exacerbation and viral respiratory illness. He has been stable overnight. breathing better. seen by pulmonary. Per RN, o2 sat drops off oxygen, patient says he doesn't have home o2. will assess for o2 need Objective Last 24 Hour Vital Signs Date Time Temp Pulse Resp B/P (MAP) Pulse Ox O2 Delivery O2 Flow Rate FiO2 08/15/19 08:11 98.1 59 20 108/61 (77) 98 08/15/19 07:18 97 Nasal Cannula 2.0 08/15/19 07:17 66 18 97 Nasal Cannula 2.0 60 18 96 08/15/19 04:00 97.7 66 20 111/64 (80) 96 08/15/19 04:00 66 08/15/19 01:09 67 17 99 Nasal Cannula 2.0 64 18 95 08/15/19 00:00 97.2 58 18 119/66 (83) 95 08/15/19 00:00 58 08/14/19 22:02 62 109/63 08/14/19 21:00 Nasal Cannula 2.0 08/14/19 20:00 97.5 62 20 109/63 (78) 95 08/14/19 19:48 93 Nasal Cannula 2.0 08/14/19 19:46 65 17 99 Nasal Cannula 2.0 62 18 94 08/14/19 16:00 63 08/14/19 16:00 98.3 57 18 108/64 (79) 93 1/28/20 13:02 65 18 98 Nasal Cannula 2.0 28 62 18 94 08/14/19 12:00 61 08/14/19 12:00 96.9 60 19 118/75 (89) 98 Intake and Output 08/14/19 08/15/19 18:59 06:59 Intake Total 280 ml Output Total 1000 ml Balance -720 ml Intake Oral 280 ml Output Urine Total 1000 ml # Voids 3 Height (Feet): 5 Height (Inches): 8.00 Weight (Pounds): 232 Objective General Appearance: no apparent distress, alert Lines, tubes and drains: peripheral HEENT: normocephalic, atraumatic Neck: non-tender, supple Respiratory/Chest: lungs clear, normal breath sounds, no respiratory distress Cardiovascular/Chest: normal rate, regular rhythm, no gallop/murmur, JVD Abdomen: normal bowel sounds, non tender, soft, distended Extremities: moderate edema, other - chronic skin darkening and changes Skin Exam: warm/dry Neurologic: ventilator specialist II-XII grossly normal, no motor/sensory deficits, oriented x 3 , responsive Musculoskeletal: normal muscle bulk Haris Turner M.D. Aug 15, 2019 09:16
[2019-08-15] MEDS ORDERED: LEVOTHYROXINE125 MCG ORAL (09:24)
[2019-08-15] MEDS ORDERED: PACERONE200 MG ORAL (09:24)
[2019-08-15] MEDS ORDERED: FLOMAX0.4 MG ORAL (09:24)
[2019-08-15] MEDS ORDERED: JANUVIA25 MG ORAL (09:24)
[2019-08-15] MEDS ORDERED: PREDNISONE20 MG ORAL (09:24)
--- NOTE | 2019-08-15 09:39 | NUR ---
DISCHARGE PLANNING DISCHARGE ORDER NOTED WAITING FOR OXYGEN DELIVERY CALLED [facility] @ [phone] WAS ONLY ABLE TO LEAVE A MESSAGE...WAITING FOR RETURN CALL SPOKE WITH QUINCY FROM [facility] YESTERDAY EVENING...QUINCY ASSURED THIS NEWS INTERNASSISTANT CASE MANAGER WOULD BE THIS MORNING Addendum: 08/15/19 at 1340 by ANA MARIA THOMPSON LVN LVN STILL WAITING FOR OXYGEN THERE SEEMS TO BE A PROBLEM WITH THE INSURANCE AND AUTHORIZATION HERE PATIENT IS LISTED GERALDINE ALFARO. INSURANCE IS LISTED GERALDINE [place]WOOD Addendum: 08/15/19 at 1654 by ANA MARIA THOMPSON LVN LVN SPOKE WITH SALLY AT [facility] OXYGEN IS SCHEDULED TO BE DELIVERED TO BEDSIDE BY 5PM TODAY ONCE OXYGEN HAS BEEN DELIVERED PATIENT CAN BE DISCHARGED
[2019-08-15] MEDS: Amiodarone 200mg tab ORAL SCH (10:31)
[2019-08-15] MEDS: Docusate 100mg cap ORAL SCH ×3 (10:32→19:04)
[2019-08-15] MEDS: Carvedilol 6.25mg Tab ORAL SCH (10:36)
[2019-08-15 12:00] VITALS: BP 114/60
--- NOTE | 2019-08-15 12:24 | Nephrology Progress Note ---
Assessment/Plan Problem List: (1) Renal failure (ARF), acute on chronic (2) CHF (congestive heart failure) (3) DMII (diabetes mellitus, type 2) (4) Hypothyroidism Assessment acute on chronic renal failure- CHF s/p CABGS- TR DM HypoThyroidism Plan Optimize cardiac status monitor renal parameters avoid nephrotoxics per orders Subjective ROS Limited/Unobtainable: No Objective Objective Last 24 Hour Vital Signs Date Time Temp Pulse Resp B/P (MAP) Pulse Ox O2 Delivery O2 Flow Rate FiO2 08/15/19 10:36 61 126/67 08/15/19 09:00 Nasal Cannula 2.0 08/15/19 09:00 55 08/15/19 08:11 98.1 59 20 108/61 (77) 98 08/15/19 07:18 97 Nasal Cannula 2.0 28 08/15/19 07:17 66 18 97 Nasal Cannula 2.0 28 60 18 96 08/15/19 04:00 97.7 66 20 111/64 (80) 96 08/15/19 04:00 66 08/15/19 01:09 67 17 99 Nasal Cannula 2.0 28 64 18 95 08/15/19 00:00 97.2 58 18 119/66 (83) 95 08/15/19 00:00 58 08/14/19 22:02 62 109/63 08/14/19 21:00 Nasal Cannula 2.0 08/14/19 20:00 97.5 62 20 109/63 (78) 95 08/14/19 19:48 93 Nasal Cannula 2.0 28 08/14/19 19:46 65 17 99 Nasal Cannula 2.0 62 18 94 08/14/19 16:00 63 08/14/19 16:00 98.3 57 18 108/64 (79) 93 08/14/19 13:02 65 18 98 Nasal Cannula 2.0 28 62 18 94 Intake and Output 08/14/19 08/15/19 18:59 06:59 Intake Total 280 ml Output Total 1000 ml Balance -720 ml Intake Oral 280 ml Output Urine Total 1000 ml # Voids 3 Height (Feet): 5 Height (Inches): 8.00 Weight (Pounds): 232 General Appearance: no apparent distress Cardiovascular: bradycardia Respiratory/Chest: decreased breath sounds Abdomen: soft Objective no change Jens Begum MD Aug 15, 2019 12:24
--- NOTE | 2019-08-15 14:15 | Discharge Summary ---
Discharge Summary Hospital Course Date of Admission Aug 09, 2019 at 02:22 Date of Discharge 08/15/2019 Admitting Diagnosis CHF HPI Hansel Akhtar is a 69 year old male who was admitted on Aug 09, 2019 at 02:22 for Congestive Heart Failure Consultations cardiology, nephrology, physical therapy, pulmonology Hospital Course 59 year old male with systolic chf, EF 30%, HTN, CAD s/p bypass graft, sever tricuspid regurgitation, chronic kidney disease, diabetes, hypothyroidism, depression, sleep apnea, scrotal hernia presented with sob and edema #Exacerbation of systolic CHF ejection fraction of 30%. Repeat Echo EF 55% #Coronary artery disease with history of coronary artery bypass at [facility], ruled out for [place] #Atrial flutter s/p DCCV 06/2018. On Amiodarone 100 daily #HTN #History of severe TR graft. repeat 2D Echocardiogram reviewed, ef 55%, moderate TR Cardiology consult Lasix 40 mg IV b.i.d. Decreased to 40mg IV daily, changed to Home dose Bumex on discharge Coreg hold off Aldactone in view of renal failure. continue amiodarone 100 home oxygen #history of ROJAS cirrhosis monitor outpatient follow up #EMMANUELLE on CKD monitor renal function. Avoid nephrotoxic meds Nephrology consult Cr improving and has stabilized #COPD #NILSA #Viral tracheobronchitis Hold Diamox for now Duoneb o2 as needed to keep o2 sat >90% ?cpap, resume if already using at home Pulmonary consult appreciated home oxygen prednisone 40 mg x 5 days #Obesity rehabilitation counsellor regarding weight loss and life style modification #Severe metabolic acidosis on admission, ? error, resolved #Hypothyroidism continue levothyroxine, dose increased to 125 #DM continue sitagliptin, insulin ssi GI ppx: ppi VTE ppx: scd boots, early ambulation disposition: home with home o2 I spent 40 minutes on this encounter. >50% spent on counselling and care coordination time of note may not reflect time of encounter Discharge Medications New Medications: Amiodarone Hcl* (Pacerone*) 200 Mg Tablet 100 MG ORAL DAILY for 10 Days, #10 TAB Levothyroxine Sodium* (Levothyroxine Sodium*) 125 Mcg Tablet 125 MCG ORAL ACBREAKFAST for 10 Days, #10 TAB Take in the morning on an empty stomach, at least 30 minutes before food. Prednisone* (Prednisone*) 20 Mg Tablet 40 MG ORAL DAILY for 4 Days, #4 TAB Sitagliptin* (Januvia*) 25 Mg Tablet 25 MG ORAL ACBREAKFAST for 10 Days, #10 TAB Tamsulosin HCl (Flomax) 0.4 Mg Cap.er.24h 0.4 MG ORAL BEDTIME for 10 Days, #10 CAP Continued Medications: Acetazolamide* (Acetazolamide*) 500 Mg Capsule.er 500 MG ORAL TWICE A DAY for , CAP (This prescription has been renewed) Atorvastatin Calcium* (Atorvastatin Calcium*) 40 Mg Tablet 40 MG ORAL BEDTIME for , TAB (This prescription has been renewed) Bumetanide* (Bumetanide*) 2 Mg Tablet 4 MG ORAL DAILY for , TAB (This prescription has been renewed) Carvedilol* (Carvedilol*) 6.25 Mg Tablet 6.25 MG ORAL EVERY 12 HOURS for , TAB (This prescription has been renewed) Ferrous Sulfate (Ferosul) 325 Mg Tablet 325 MG PO for , TAB (This prescription has been renewed) Mirtazapine* (Mirtazapine*) 7.5 Mg Tablet 30 MG ORAL BEDTIME for , TAB (This prescription has been renewed) Pantoprazole* (Pantoprazole*) 40 Mg Tablet.dr 40 MG ORAL DAILY for , TAB (This prescription has been renewed) Discontinued Medications: Amiodarone Hcl* (Amiodarone Hcl*) 400 Mg Tablet 200 MG ORAL EVERY 12 HOURS for , TAB Levothyroxine Sodium* (Levothyroxine Sodium*) 75 Mcg Tablet 0.075 MCG ORAL DAILY for , TAB Take in the morning on an empty stomach, at least 30 minutes before food. Spironolactone* (Spironolactone*) 100 Mg Tablet 100 MG ORAL DAILY for , TAB Discharge Condition Upon Discharge: stable Discharge Disposition Patient was discharged to home with home oxygen Discharge Diagnoses: (1) CHF (congestive heart failure) (2) SOB (shortness of breath) (3) Renal failure (ARF), acute on chronic (4) DMII (diabetes mellitus, type 2) (5) Hypothyroidism Haris Turner M.D. Aug 15, 2019 14:15
--- NOTE | 2019-08-15 14:15 | Cardiac Electrophysiology PN ---
Assessment/Plan Assessment/Plan 1. Exacerbation of CHF in a patient with history [place] and CABG EF 30%. Repeat echocardiogram showed EF 55%. On Lasix 40 mg IV daily, Coreg and Off lisinopril and Aldactone in view of renal failure, creatinine 2.3 and risk of hyperkalemia. 2. S/P CABG at [facility]. Ruled out for [place]. 3. History of severe tricuspid regurgitation. Echocardiogram showed only moderate TR. 4. Atrial flutter s/p DCCV 06/2018. On Amiodarone 100 daily 5. COPD. 6. Obesity. 7. HO Gu Cirrhosis 8. Cardiac Cirrhosis with ascites 9. Renal failure. Cr 2.5, improved to 2.0 DW RN Subjective Subjective No CP or SOB,DC planning today. Objective Last 24 Hour Vital Signs Date Time Temp Pulse Resp B/P (MAP) Pulse Ox O2 Delivery O2 Flow Rate FiO2 08/15/19 10:36 61 126/67 08/15/19 09:00 Nasal Cannula 2.0 08/15/19 09:00 55 08/15/19 08:11 98.1 59 20 108/61 (77) 98 08/15/19 07:18 97 Nasal Cannula 2.0 28 08/15/19 07:17 66 18 97 Nasal Cannula 2.0 28 60 18 96 08/15/19 04:00 97.7 66 20 111/64 (80) 96 08/15/19 04:00 66 08/15/19 01:09 67 17 99 Nasal Cannula 2.0 28 64 18 95 08/15/19 00:00 97.2 58 18 119/66 (83) 95 08/15/19 00:00 58 08/14/19 22:02 62 109/63 08/14/19 21:00 Nasal Cannula 2.0 08/14/19 20:00 97.5 62 20 109/63 (78) 95 08/14/19 19:48 93 Nasal Cannula 2.0 28 08/14/19 19:46 65 17 99 Nasal Cannula 2.0 28 62 18 94 08/14/19 16:00 63 08/14/19 16:00 98.3 57 18 108/64 (79) 93 Intake and Output 08/14/19 08/15/19 19:00 07:00 Intake Total 280 ml Output Total 1000 ml Balance -720 ml Intake Oral 280 ml Output Urine Total 1000 ml # Voids 3 Objective HEAD AND NECK: Mild JVD. LUNGS: Clear CARDIOVASCULAR: Regular S1 and S2 with no gallop. Sternotomy intact. ABDOMEN: Soft. EXTREMITIES: 2+ pitting edema. Paramjit Singh MD Aug 15, 2019 14:15
--- NOTE | 2019-08-15 15:16 | NUR ---
P.T NOTE: P.T EVALUATION COMPLETED AND TREATMENT INITIATED. PLEASE REFER TO P.T EVALUATION FOR CURRENT FUNCTIONAL STATUS. RECOMMEND D/C TO PRIOR LIVING ARRANGEMENT WITH P.T FOLLOW FOR FURTHER STRENGTHENING AND BALANCE TRAINING TO MAXIMIZE SAFETY AND INDEPENDENCE. THANK YOU FOR THIS REFERRAL.
[2019-08-15 16:00] VITALS: BP 118/70
--- NOTE | 2019-08-15 17:45 | NUR ---
NURSE NOTES: [facility] here dropped off O2 called [facility] to schedule drop off of O2 to [place], [facility]er.
--- NOTE | 2019-08-15 18:48 | General Progress Note ---
Assessment/Plan Problem List: (1) CHF (congestive heart failure) ICD Codes: I50.9 - Heart failure, unspecified SNOMED: 85622944 (2) SOB (shortness of breath) ICD Codes: R06.02 - Shortness of breath SNOMED: 954170381 (3) Renal failure (ARF), acute on chronic ICD Codes: N17.9 - Acute kidney failure, unspecified; N18.9 - Chronic kidney disease, unspecified SNOMED: 439453029 (4) DMII (diabetes mellitus, type 2) ICD Codes: E11.9 - Type 2 diabetes mellitus without complications SNOMED: 20280595 (5) Hypothyroidism ICD Codes: E03.9 - Hypothyroidism, unspecified SNOMED: 70478211 Status: stable Assessment/Plan: continue Januvia 25 mg daily continue NISS ac / hs continue adjusted dose of LT4 125 mcg daily repeat thyroid function in 3 weeks Subjective Allergies: Coded Allergies: LISINOPRIL (Verified Allergy, Unknown, 08/08/19) METOPROLOL (Verified Allergy, Unknown, 08/08/19) OXYCODONE (Verified Allergy, Unknown, 08/08/19) RANITIDINE (Verified Allergy, Unknown, 08/08/19) All Systems: reviewed and negative except above Subjective events noted Item Value Date Time Bedside Blood Glucose 122 mg/dl H 08/15/19 1130 Bedside Blood Glucose 200 mg/dl H 08/15/19 0630 Bedside Blood Glucose 200 mg/dl H 08/14/19 2159 Bedside Blood Glucose 163 mg/dl H 08/14/19 1653 Objective Last 24 Hour Vital Signs Date Time Temp Pulse Resp B/P (MAP) Pulse Ox O2 Delivery O2 Flow Rate FiO2 08/15/19 10:36 61 126/67 08/15/19 09:00 Nasal Cannula 2.0 08/15/19 09:00 55 08/15/19 08:11 98.1 59 20 108/61 (77) 98 08/15/19 07:18 97 Nasal Cannula 2.0 28 08/15/19 07:17 66 18 97 Nasal Cannula 2.0 28 60 18 96 08/15/19 04:00 97.7 66 20 111/64 (80) 96 08/15/19 04:00 66 08/15/19 01:09 67 17 99 Nasal Cannula 2.0 28 64 18 95 08/15/19 00:00 97.2 58 18 119/66 (83) 95 08/15/19 00:00 58 08/14/19 22:02 62 109/63 08/14/19 21:00 Nasal Cannula 2.0 08/14/19 20:00 97.5 62 20 109/63 (78) 95 08/14/19 19:48 93 Nasal Cannula 2.0 28 08/14/19 19:46 65 17 99 Nasal Cannula 2.0 28 62 18 94 Intake and Output 08/14/19 08/15/19 19:00 07:00 Intake Total 280 ml Output Total 1000 ml Balance -720 ml Intake Oral 280 ml Output Urine Total 1000 ml # Voids 3 Height (Feet): 5 Height (Inches): 8.00 Weight (Pounds): 232 General Appearance: no apparent distress Neck: normal alignment Cardiovascular: normal rate Respiratory/Chest: lungs clear Abdomen: normal bowel sounds Objective Current Medications Medications (Trade) Dose Ordered Sig/Florinda Route PRN Reason Start Time Stop Time Status Last Admin Dose Admin Albuterol/ Ipratropium (Albuterol/ Ipratropium) 3 ml Q6HRT HHN 08/13/19 13:00 08/18/19 12:59 08/15/19 07:14 Amiodarone HCl (Cordarone) 100 mg DAILY ORAL 08/12/19 09:00 09/08/19 20:59 08/15/19 10:31 Atorvastatin Calcium (Lipitor) 40 mg BEDTIME ORAL 08/09/19 21:00 09/08/19 20:59 08/14/19 22:00 Carvedilol (Coreg) 6.25 mg EVERY 12 HOURS ORAL 08/10/19 21:00 09/08/19 20:59 08/15/19 10:36 Dextrose (Dextrose 50%) 25 ml Q30M PRN IV Hypoglycemia 08/12/19 17:45 09/11/19 17:44 Dextrose (Dextrose 50%) 50 ml Q30M PRN IV Hypoglycemia 08/12/19 17:45 09/11/19 17:44 Docusate Sodium (Colace) 100 mg THREE TIMES A DAY ORAL 08/10/19 18:00 09/09/19 17:59 08/15/19 13:28 Furosemide (Lasix) 40 mg DAILY IV 08/13/19 09:00 09/09/19 08:59 08/15/19 10:31 Insulin Aspart (NovoLOG) BEFORE MEALS AND HS SUBQ 08/12/19 21:00 09/11/19 20:59 08/15/19 06:25 Iron Sucrose 100 mg/Sodium Chloride 60 ml @ 240 mls/hr QHS IV 08/13/19 21:00 09/12/19 20:59 08/14/19 22:00 Levothyroxine Sodium (Synthroid) 125 mcg ACBREAKFAST ORAL 08/12/19 06:30 09/09/19 06:29 08/15/19 06:25 Mirtazapine (Remeron) 15 mg BEDTIME ORAL 08/10/19 21:00 09/09/19 20:59 08/14/19 22:00 Pantoprazole (Protonix) 40 mg BID ORAL 08/10/19 18:00 09/09/19 08:59 08/15/19 10:31 Prednisone (predniSONE) 40 mg DAILY ORAL 08/14/19 11:00 08/19/19 10:59 08/15/19 10:32 Sitagliptin Phosphate (Januvia) 25 mg ACBREAKFAST ORAL 08/14/19 06:30 09/13/19 06:29 08/15/19 06:25 Tamsulosin HCl (Flomax) 0.4 mg BEDTIME ORAL 08/12/19 21:00 09/11/19 20:59 08/14/19 22:00 Arturo Roque MD Aug 15, 2019 18:48
--- NOTE | 2019-08-15 19:30 | NUR ---
NURSE NOTES: Received report from PAUL Ritchie. Patient is awake, sitting on a chair; A/Ox4. Primarily Bengali speaking. No signs of acute distress noted. On oxygen via NC @ 2LPM. Checked IV site and flushed. No erythema, bleeding or infiltration noted. Waiting for [facility] ambulance for pickup. Will continue to monitor.
--- NOTE | 2019-08-15 19:40 | NUR ---
NURSE NOTES: [facility] ambulance arrived for pickup. Discharge instructions and packet given by PAUL Crystal. Belongings taken by patient. IV line removed. Tele box off and tolerating well. Report given to EMT. Vital signs taken HR=66, RR=18, PL=662/65, O2 sat=94%.
--- NOTE | 2019-08-15 20:00 | NUR ---
NURSE NOTES: Patient was discharged to [facility] via ambulation w/ staff member assist via tavon accompanied by 2 maintenance mgr, with oxygen tank via NC @ 2LPM. No signs of acute distress noted.
--- NOTE | 2019-08-15 20:05 | NUR ---
HAND-OFF: Report given to Chelsey/PAUL, in stable condition will be DC today.
== END 2019-08-15 20:10 | disposition home or self-care (01) | DRG 291 ==
LOC: EDBD 23:10 → EMR 23:33 → 2W 08-09 02:22 → EDBEDREQ 08-09 07:18 → 2W 08-09 07:32 → 2E 08-09 15:38
DX: I13.0 Hypertensive heart and chronic kidney disease with heart failure and stage 1 through stage 4 chronic kidney disease, or unspecified chronic kidney disease (principal); I50.23 Acute on chronic systolic (congestive) heart failure; N17.9 Acute kidney failure, unspecified; I48.92 Unspecified atrial flutter; E03.9 Hypothyroidism, unspecified; Z88.6 Allergy status to analgesic agent; Z88.8 Allergy status to other drugs, medicaments and biological substances; E11.22 Type 2 diabetes mellitus with diabetic chronic kidney disease; N18.9 Chronic kidney disease, unspecified; J44.9 Chronic obstructive pulmonary disease, unspecified; G47.33 Obstructive sleep apnea (adult) (pediatric); E66.9 Obesity, unspecified; I25.10 Atherosclerotic heart disease of native coronary artery without angina pectoris; Z95.1 Presence of aortocoronary bypass graft; J20.8 Acute bronchitis due to other specified organisms; K75.81 Nonalcoholic steatohepatitis (NASH); K74.60 Unspecified cirrhosis of liver; I25.5 Ischemic cardiomyopathy; I36.1 Nonrheumatic tricuspid (valve) insufficiency; Z87.891 Personal history of nicotine dependence
CPT/HCPCS: 36415; 71045; 76770; 80048; 80053; 80061; 81003; 82550; 82553; 82607; 82728; 82746; 82962; 82977; 83036; 83540; 83550; 83605; 83735; 83880; 84100; 84439; 84443; 84481; 84484; 84550; 85007; 85025; 86140; 86710; 87040; 87081; 93005; 93306; 94640; 94664; 96374; 96375; 99285; J1815; J7620